=== PATIENT | male | born 1965 | race Caucasian/White ===

== ENCOUNTER 2022-11-13 15:49 | Outpatient (REF) | payer BC, SELFPAY ==
[2022-11-13 16:02] LABS: MANUAL DIFF FLAG NO
[2022-11-13 16:51] LABS: Basophils Absolute Auto 0.1 X10*3/uL (0.0-0.2); Basophils Percent Auto 0.5 % (0-2); Eosinophils Absolute Auto 0.1 X10*3/uL (0.0-0.4); Eosinophils Percent Auto 1.3 % (0-4); Hematocrit 47.7 % (42.0-52.0); Imm Gran Abs Auto 0.02 X10*3/uL (0.00-0.03); Imm Gran Pct Auto 0.2 % (0.0-0.4); Lymphocytes Absolute Auto 2.8 X10*3/uL (1.2-4.9); Lymphocytes Percent Auto 26.7 % (20-40); Mean Corpuscular HGB Conc 33.5 g/dl (31.0-36.0); Mean Corpuscular Hemoglobin 29.1 pg (27.0-33.0); Mean Corpuscular Volume 86.9 fL (80.0-98.0); Mean Platelet Volume 9.8 fL (9.4-12.4); Monocytes Absolute Auto 0.9 X10*3/uL (0.1-1.2); Monocytes Percent Auto 8.9 % (2-11); Neutrophils Absolute Auto 6.6 x10*3/uL (2.0-8.3); Neutrophils Percent Auto 62.4 % (45-73); Platelet Count 274 X10*3/uL (160-400); Red Blood Count 5.49 X10*6/uL (4.60-5.80); Red Cell Distribution Width 12.1 % (11.0-16.0); White Blood Count 10.5 X10*3/uL (4.8-10.8)
[2022-11-13 17:37] LABS: Alanine Aminotransferase 24 U/L (0-40); Albumin Level 4.4 g/dL (3.5-5.0); Alkaline Phosphatase 81 U/L (39-117); Anion Gap 11 (12-20); Aspartate Amino Transferase 23 U/L (5-37); Bilirubin Total 0.4 mg/dL (0.0-1.0); Blood Urea Nitrogen 17 mg/dL (9-16); Calcium 9.7 mg/dL (8.4-10.2); Carbon Dioxide 30 mmol/L (22-29); Chloride 101 mmol/L (96-108); Cholesterol 212 mg/dL; Estimated Glomerular Filt Rate > 60; Glucose Random 75 mg/dL (60-115); HDL Cholesterol 43 mg/dL; LDL Cholesterol Calculated 145 mg/dl; Potassium 4.8 mmol/L (3.3-5.1); Sodium 137 mmol/L (135-145); Total Protein 7.6 g/dL (6.5-8.0); Triglycerides 121 mg/dL
[2022-11-13 17:52] LABS: Free T4 (Free Thyroxine) 0.91 ng/dL (0.71-1.85); Thyroid Stimulating Hormone 3.99 uIU/mL (0.32-4.0)
[2022-11-14 10:53] LABS: Thyroid Peroxidase Antibodies >900 IU/mL (<9)
== END 2022-11-13 15:50 | disposition home or self-care (01) ==
LOC: HO.LAB 15:49
PROVIDERS: PCP Internal Medicine; Visit Provider Internal Medicine
DX: Z00.00 Encounter for general adult medical examination without abnormal findings (principal); E03.9 Hypothyroidism, unspecified
CPT/HCPCS: 36415; 80053; 80061; 84439; 84443; 85025; 86376

== ENCOUNTER 2023-05-14 15:06 | Outpatient (REF) | payer BC, SELFPAY ==
[2023-05-14 15:23] LABS: MANUAL DIFF FLAG NO
[2023-05-14 15:58] LABS: Basophils Absolute Auto 0.1 X10*3/uL (0.0-0.2); Basophils Percent Auto 0.8 % (0-2); Eosinophils Absolute Auto 0.2 X10*3/uL (0.0-0.4); Eosinophils Percent Auto 2.1 % (0-4); Hematocrit 46.2 % (42.0-52.0); Hemoglobin 15.5 g/dl (14.0-18.0); Imm Gran Abs Auto 0.01 X10*3/uL (0.00-0.03); Imm Gran Pct Auto 0.1 % (0.0-0.4); Lymphocytes Absolute Auto 2.5 X10*3/uL (1.2-4.9); Lymphocytes Percent Auto 31.7 % (20-40); Mean Corpuscular HGB Conc 33.5 g/dl (31.0-36.0); Mean Corpuscular Hemoglobin 29.1 pg (27.0-33.0); Mean Corpuscular Volume 86.7 fL (80.0-98.0); Mean Platelet Volume 9.6 fL (9.4-12.4); Monocytes Absolute Auto 0.7 X10*3/uL (0.1-1.2); Monocytes Percent Auto 8.9 % (2-11); Neutrophils Absolute Auto 4.4 x10*3/uL (2.0-8.3); Neutrophils Percent Auto 56.4 % (45-73); Platelet Count 258 X10*3/uL (160-400); Red Blood Count 5.33 X10*6/uL (4.60-5.80); White Blood Count 7.8 X10*3/uL (4.8-10.8)
[2023-05-14 17:00] LABS: Prostate Specific Antigen 1.32 ng/mL (<0.05-4.0)
[2023-05-14 17:01] LABS: Alanine Aminotransferase 25 U/L (0-40); Albumin Level 4.3 g/dL (3.5-5.0); Alkaline Phosphatase 72 U/L (39-117); Anion Gap 11 (12-20); Aspartate Amino Transferase 22 U/L (5-37); Bilirubin Total 0.4 mg/dL (0.0-1.0); Blood Urea Nitrogen 20 mg/dL (9-16); Calcium 9.7 mg/dL (8.4-10.2); Carbon Dioxide 25 mmol/L (22-29); Chloride 103 mmol/L (96-108); Estimated Glomerular Filt Rate > 60; Glucose Random 88 mg/dL (60-115); Potassium 4.2 mmol/L (3.3-5.1); Sodium 135 mmol/L (135-145); Total Protein 7.6 g/dL (6.5-8.0)
[2023-05-14 17:02] LABS: Free T4 (Free Thyroxine) 0.85 ng/dL (0.71-1.85); Thyroid Stimulating Hormone 2.97 uIU/mL (0.32-4.0)
[2023-05-18 18:38] LABS: Thyroid Peroxidase Antibodies >900 IU/mL (<9)
== END 2023-05-14 15:07 | disposition home or self-care (01) ==
LOC: HO.LAB 15:06
PROVIDERS: PCP Internal Medicine; Visit Provider Internal Medicine
DX: Z12.5 Encounter for screening for malignant neoplasm of prostate (principal); E03.9 Hypothyroidism, unspecified; E06.9 Thyroiditis, unspecified; I10 Essential (primary) hypertension
CPT/HCPCS: 36415; 80053; 84153; 84439; 84443; 85025; 86376

== ENCOUNTER 2023-06-17 08:41 | Outpatient (REF) | payer BC, SELFPAY ==
--- NOTE | 2023-06-17 08:47 | EMG_ITS ---
Bilateral median and ulnar motor and sensory studies were performed. Bilateral radial sensory studies were performed and paraspinal muscles were tested with a needle. 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 MD ZELDA Kaur/DAWIT / [id number]
== END 2023-06-17 08:42 | disposition home or self-care (01) ==
LOC: HO.NEURO 08:41
PROVIDERS: PCP Internal Medicine; Visit Provider Internal Medicine
DX: M79.641 Pain in right hand (principal); M79.642 Pain in left hand
CPT/HCPCS: 95886; 95911

== ENCOUNTER 2023-08-24 09:28 | Outpatient (AMB) | payer BC, SELFPAY ==
[2023-08-24 10:30] VITALS: BMI 33.2
--- NOTE | 2023-08-24 10:30 | MHC.OFFVIS ---
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 States CTS started about 3 yrs ago and has worsen at night and in the mornings. States he wakes up with stiff fingers. Also has triggering in his right index finger that started about 2 yrs. Also has little weakness in hands. EMG done. Allergies No Known Allergies Allergy (Verified 08/24/23 10:33) HPI PST SUPERVISOR- B/L Hand pain EMG Done HPI Details Franck is a 58 year old right hand dominant man who presents for a NCS review of his bilateral hand numbness. He complains of numbness in the bilateral median nerve distribution. Symptoms intermittent, but daily, worse at night. He says this has been present for ~3 years now. He also says he has painful locking of the right index finger for ~2 years now. He denies any prior treatment He also says he has stiff fingers in the mornings, which he says improves with use throughout the day. He is retired. [facility] Social History (Updated 08/24/23 @ 10:37 by REG Jarvis) Current occupational status: retired and disabled Current occupation: left hand Review of Systems Const All systems reviewed & are unremarkable except as noted in HPI and below Physical Exam Vital Signs: BMI result Body Mass Index 33.2 Const General: cooperative, healthy appearing and no acute distress Orientation/consciousness: patient oriented x3 HEENT Head: Yes normocephalic and Yes atraumatic Eyes EOM: EOMs intact bilaterally Resp Effort & Inspection: normal respiratory effort and able to speak in complete sentences Cardio Jugular venous distension: no JVD Skin General skin exam: turgor normal Rashes: no rashes Neuro General: patient oriented x3 Extrem Other: Evaluation of Bilateral Upper Extremity: The patient is alert, oriented, and in no acute distress Neuro: Median, Ulnar, Radial nerves motor and sensory intact and sensation is normal to the tips of all digits today in clinic No thenar or intrinsic wasting Good APB muscle belly firing and good finger cross Vascular: Cap refill brisk ROM: He can make a fist and extend all his digits Visible locking and catching of the right index finger Tender over the a1 shira of the right index finger Skin: No lacerations or abrasions. General: No Ecchymosis. No Erythema or evidence of infection. 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 Claritza Salcedo MD Psych Appearance: grossly normal Affect: normal affect Attitude: cooperative Assessment & Plan Assessment & Plan (1) Carpal tunnel syndrome of right wrist: Code(s): G56.01 - Carpal tunnel syndrome, right upper limb (2) Carpal tunnel syndrome of left wrist: Code(s): G56.02 - Carpal tunnel syndrome, left upper limb (3) Trigger finger, right index finger: Code(s): M65.321 - Trigger finger, right index finger Plan Assessment & Plan: 1. Right carpal tunnel syndrome, mild-moderate Symptoms intermittent, but daily, worse at night 2. Right index finger trigger finger 3. Left carpal tunnel syndrome, mild-moderate Symptoms intermittent, but daily, worse at night I educated him about this condition I discussed operative and non-operative treatment options The patient would like to proceed with surgery, beginning with the right side The risks and benefits of operative treatment were discussed with the patient and the patient wishes to proceed with surgery. These risks include, but are not limited to risk of damage to blood vessels, nerves, tendons, infection, recurrence, incomplete relief of preoperative symptoms, persistent pain, possible need for further surgery and the risks associated with regional blocks and anesthesia. The plan is to take the patient to the operating room sometime in the next few weeks for the following procedures: 1. Right Carpal tunnel release, under local 2. Right index trigger finger release, under local All of the preoperative paperwork including the consent was filled out today. All the patient's questions were answered. The patient understands that they will be contacted by our veterinary surgery technologist soon to schedule this procedure He denies Diabetes, blood thinners, asthma, heart, lung, kidney issues We will discuss treatment for his left hand at a later date Scribed for Daylin Jang MD by Loc Bullock, medical apparatus model maker, on 08/24/23 at 10:40 AM, EST. Coding Level of Care Code Est Pt Level 4 (68092) Diagnoses Carpal tunnel syndrome of right wrist G56.01 Carpal tunnel syndrome of left wrist G56.02 Trigger finger, right index finger M65.321
== END 2023-08-24 10:56 | disposition home or self-care (01) ==
PROVIDERS: PCP Internal Medicine; Visit Provider Orthopaedic Surgery
DX: G56.03 Carpal tunnel syndrome, bilateral upper limbs (principal); M65.321 Trigger finger, right index finger
CPT/HCPCS: 99204

== ENCOUNTER → 2023-08-24 09:28 | Outpatient (BNVA) | payer BC, SELFPAY | PROVIDERS: PCP Internal Medicine; Visit Provider Orthopaedic Surgery ==

== ENCOUNTER 2023-10-04 10:45 | Outpatient (REF) | payer BC, SELFPAY ==
[2023-10-04 13:25] LABS: Cholesterol 182 mg/dL (<200); HDL Cholesterol 39 mg/dL (>40); LDL Cholesterol Calculated 126 mg/dL (<100); Triglycerides 89 mg/dL (<150)
[2023-10-04 13:43] LABS: Free T4 (Free Thyroxine) 0.86 ng/dL (0.71-1.85); Thyroid Stimulating Hormone 2.95 uIU/mL (0.32-4.0)
== END 2023-10-04 10:46 | disposition home or self-care (01) ==
LOC: HO.LAB 10:45
PROVIDERS: PCP Internal Medicine; Visit Provider Internal Medicine
DX: E78.00 Pure hypercholesterolemia, unspecified (principal); E03.9 Hypothyroidism, unspecified
CPT/HCPCS: 36415; 80061; 84439; 84443

== ENCOUNTER 2023-11-11 12:08 | Day surgery (SDC) | payer BC, SELFPAY ==
[2023-11-11 12:21] VITALS: BP 140/79; PULSE 73; RESP 20; TEMP 36.1; O2SAT 97; BMI 34.3
--- NOTE | 2023-11-11 14:45 | MHC.SHP ---
Pre-Procedural Eval Section A Date of Service: 11/11/23 The patient is an INPATIENT: No Changes since office visit: No Cold of Flu in the past 2 weeks, No New Medical Problems, No Changes in Medication and No Patient answered all questions The History & Physical has been completed within 30 days and I have reviewed it.: Yes Section B Chief Complaint: carpal tunnel,trigger finger Allergies: Allergies Allergy/AdvReac Type Severity Reaction Status Date / Time No Known Allergies Allergy Verified 08/24/23 10:33 Plan I have reviewed the history and physical and performed a pertinent physical examination on my patient. No changes have occurred unless specified. Time Spent With Patient Time: Total time managing care of this patient today ____ minutes.
--- NOTE | 2023-11-11 14:45 | W.PM.OPN ---
Operative Note Operative Note Date of Service: 11/11/23 Narrative: Preop diagnosis: 1. Right Carpal tunnel syndrome 2. Right index finger trigger finger Postop diagnosis: same Procedure: 1. Right Carpal tunnel release 2. Right index finger trigger release Surgeon: Daylin Jang MD Anesthesia: local block using 1% lidocaine with epinephrine Findings: Thickened transverse carpal ligament. EBL: Less than 5 mL Specimens: None Complications: None Disposition: Brought to recovery room in stable condition Plan: Follow-up for 10-14 days for wound check and suture removal Indications: The patient is 58 years old, with a right index finger trigger finger and carpal tunnel syndrome that has been unresponsive to nonoperative management. The risks and benefits of operative treatment including but not limited to risk of damage to blood vessels, nerves, tendons, infection, persistent pain, persistent symptoms, or possible need for additional surgery were discussed with the patient and the patient wishes to proceed with surgery. Procedure: Once consent was obtained a local block was performed using a combination of 1% lidocaine with epinephrine. The patient was then brought back to the operating suite and placed on the operative table in supine position. The right upper extremity was prepped and draped in a standard surgical fashion. Once assured that we had a good block, a 1.5 cm oblique incision was made centered over the A1 shira of the right index finger . The incision was made through the skin to the subcutaneous tissues using a #15 blade. Careful dissection was made down to the level of the A1 shira using tenotomy scissors, with care being taken to protect the nearby neurovascular structures. A longitudinal incision was made in the A1 shira 1st using a #15 blade, then using tenotomy scissors under direct visualization. The A1 shira was noted to be thickened. Following our A1 shira release, we no longer saw any locking or catching of the digit with flexion and extension. Once assured that we had a good block, a 2.0 cm longitudinal incision was made centered over the right carpal tunnel. The incision was made through the skin to the subcutaneous tissues using a #15 blade. Dissection was made down to the level of the transverse carpal ligament with care being taken to protect the palmar cutaneous nerve. Once the transverse carpal ligament was clearly visualized, a longitudinal incision was made in the transverse carpal ligament 1st using a #15 blade, then using tenotomy scissors under direct visualization. Care was taken to look for and protect the motor branch of the median nerve when seen in this area. Once satisfied with our carpal tunnel release the wound was copiously irrigated with normal saline and hemostasis was obtained with a brief period of local pressure. The skin edges were reapproximated with some 5.0 nylon suture material and a sterile dressing was applied. The patient appears to have tolerated the procedure well and with no complications. All digits were well vascularized at the conclusion of the case.
[2023-11-11 15:35] VITALS: BP 161/83; PULSE 69; RESP 20; TEMP 36.1; O2SAT 95
== END 2023-11-11 15:55 | disposition home or self-care (01) ==
PROVIDERS: PCP Internal Medicine; Visit Provider Orthopaedic Surgery
PROC: (CPT 64721; principal; 2023-11-11 13:20)
PROC: (CPT 26055; 2023-11-11 13:20)
DX: G56.01 Carpal tunnel syndrome, right upper limb (principal); M65.321 Trigger finger, right index finger; R20.0 Anesthesia of skin; R20.2 Paresthesia of skin
CPT/HCPCS: 64721; 26055; J0171

== ENCOUNTER → 2023-11-11 12:08 | Outpatient (BNV) | payer BC, SELFPAY | PROVIDERS: PCP Internal Medicine; Visit Provider Orthopaedic Surgery | DX: M65.321 Trigger finger, right index finger (principal); G56.01 Carpal tunnel syndrome, right upper limb | CPT/HCPCS: 26055; 64721 ==

== ENCOUNTER 2023-11-24 09:41 | Outpatient (AMB) | payer BC, SELFPAY ==
--- NOTE | 2023-11-24 09:43 | A.OFFVIS_ITS ---
Intake Intake Visit Reasons: PO-Rt CTR, Rt IF Trigger 11/11/23 Intake Note: Pt presents to the office today for a PO- rt ctr, rt IF 11/11/23. Pt states he is feeling well after the procedure. Pt states he does have pain sometimes where his incisions are. Pt denies any swelling. Allergies No Known Allergies Allergy (Verified 11/24/23 09:44) HPI PO-Rt CTR, Rt IF Trigger 11/11/23 HPI Details 58-year-old male who returns to the [facility] today for post-op right CTR and right index finger trigger release, 11/11/23. He states he has improvement in his hand however he does experiences mild pain at the incision site. He denies any swelling in his hand. He is doing well overall and has no other concerns today. [facility] Medical History Broken leg History of hypothyroidism History of anxiety History of depression Surgical History Hx of colonoscopy Hx of surgical biopsy Social History (Updated 11/24/23 @ 09:45 by Karen Mo MA) Alcohol intake: never Patient Tobacco Use Status: Never used Tobacco Use of substances other than those prescribed or required for medical reasons: Yes Substance Use Type: Marijuana Current occupational status: retired and disabled Current occupation: left hand Review of Systems Const All systems reviewed & are unremarkable except as noted in HPI and below Physical Exam Extrem Other: Right wrist: Incision clean, dry and intact. No erythema or drainage. He has full sensation throughout. Right index finger: No catching or locking. He has diffused swelling throughout the finger. He is limited with his ROM. Results Reviewed Results Reviewed: Operative Note Date of Service: 11/11/23 Narrative: Preop diagnosis: 1. Right Carpal tunnel syndrome 2. Right index finger trigger finger Postop diagnosis: same Procedure: 1. Right Carpal tunnel release 2. Right index finger trigger release Surgeon: Daylin Jang MD Anesthesia: local block using 1% lidocaine with epinephrine Findings: Thickened transverse carpal ligament. EBL: Less than 5 mL Specimens: None Assessment & Plan Assessment & Plan (1) Carpal tunnel syndrome of right wrist: Code(s): G56.01 - Carpal tunnel syndrome, right upper limb (2) Carpal tunnel syndrome of left wrist: Code(s): G56.02 - Carpal tunnel syndrome, left upper limb (3) Trigger finger, right index finger: Code(s): M65.321 - Trigger finger, right index finger Plan Sutures removed today, steri strips applied. I advised him to keep the area clean, dry for the next several days. I did recommend to avoid submerging his hand underwater and pat it dry after getting it wet. He will avoid any type of lifting, pushing, pulling or carrying greater than a 5-10 pounds for the next 2- 3 weeks which he is content with. He is interested in left wrist CTR surgery which he will schedule for a later date and he will follow-up as needed for the right wrist. Patient Instructions: Scribed for Phill Cardoso PA-C, by Neal Dior medical technologist hematology, on 11/24/2023 at 9:45 AM EST. I, Phill Cardoso PA-C, have personally reviewed and agree with the information entered by the scribe. Coding Level of Care Code Global (34733) Diagnoses Carpal tunnel syndrome of right wrist G56.01 Carpal tunnel syndrome of left wrist G56.02 Trigger finger, right index finger M65.321
== END 2023-11-24 10:05 | disposition home or self-care (01) ==
PROVIDERS: PCP Internal Medicine; Visit Provider Physician Assistant
DX: G56.03 Carpal tunnel syndrome, bilateral upper limbs (principal); M65.321 Trigger finger, right index finger
CPT/HCPCS: 99024

== ENCOUNTER → 2023-11-24 09:41 | Outpatient (BNVA) | payer BC, SELFPAY | PROVIDERS: PCP Internal Medicine; Visit Provider Physician Assistant ==

== ENCOUNTER 2023-12-28 09:55 | Outpatient (AMB) | payer BC, SELFPAY ==
[2023-12-28 09:56] VITALS: BMI 34.3
--- NOTE | 2023-12-28 09:56 | MHC.OFFVIS ---
Intake Vital Signs 12/28/23 09:56 Height 5 ft 9 in Weight 232 lb BMI 34.3 Intake Visit Reasons: PO-Rt CTR, Rt IF Trigger 11/11/23 Intake Note: Franck 58 yr old male presents today for his P/O Rt CTR, Rt IF Trigger 11/11/[address] Jang. States he still has swelling and a stabbing pain by his CTR incision. States his index finger has not locked however its painful to make a fist, mostly over the dorsal aspect of the MCP and PIP joints. It should be noted in talking with patient that he has been doing rather heavy work including loading large logs into his wood splitter and is now about 6 weeks postop.. Allergies No Known Allergies Allergy (Verified 12/28/23 09:59) HPI PO-Rt CTR, Rt IF Trigger 11/11/23 HPI Details Franck is a 58 year old left hand dominant man who returns with complaints of pain, S/P right carpal tunnel release & index finger trigger release, DOS: 11/11/23. He says he feels some swelling & a stabbing pain near his carpal tunnel incision. He also complains of pain in his index finger when trying to make a fist. He says he has been working on ROM exercises and massaging his hand & wrist at home, but says this has only helped him somewhat. He says he has been using his hand for activities around the house, including splitting logs. He complains of worsening pain at night following these heavy activities. He says he no longer has any locking or catching & his sensation in his right hand is improved and mostly normal now. He has left carpal tunnel syndrome and complains of numbness nightly, which affects his sleep. He says this is tolerable for now and is still intermittent. He is retired but tries to stay active. [facility] Medical History Broken leg History of hypothyroidism History of anxiety History of depression Surgical History Hx of colonoscopy Hx of surgical biopsy Social History Alcohol intake: never Patient Tobacco Use Status: Never used Tobacco Substance Use Type: Marijuana Current occupational status: retired and disabled Current occupation: left hand Physical Exam Vital Signs: BMI result Body Mass Index 34.3 Extrem Other: Evaluation of Right Upper Extremity: The patient is alert, oriented, and in no acute distress All incisions are well healed with no erythema drainage or evidence of infection. Mild tenderness over the carpal tunnel incision, but no hypersensitivity. Neuro: Median, Ulnar, Radial nerves motor and sensory intact and sensation is normal to the tips of all digits today in clinic No thenar or intrinsic wasting Good APB muscle belly firing and good finger cross He can make a fist and extend all of his digits with no locking or catching. He does complain of some tightness over the dorsal aspect of the index finger MCP and PIP joints when he makes a fist, likely secondary to some mild stiffness. 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 Claritza Salcedo MD Assessment & Plan Assessment & Plan (1) Carpal tunnel syndrome of right wrist: Code(s): G56.01 - Carpal tunnel syndrome, right upper limb (2) Carpal tunnel syndrome of left wrist: Code(s): G56.02 - Carpal tunnel syndrome, left upper limb (3) Trigger finger, right index finger: Code(s): M65.321 - Trigger finger, right index finger Plan Assessment & Plan: 1. Right carpal tunnel syndrome, S/P release DOS: 11/11/23 Pre-operative symptoms intermittent, but daily, worse at night Now with normal sensation 2. Right index finger trigger finger, S/P release DOS: 11/11/23 The patient appears to be doing well post-operatively I educated him about the post-operative course I discussed activity modifications, he is to work on ROM exercises at home and massage about the incision. I explained to him that I think his current exam is normal for only 6 weeks postop. I also explained that I think truly heavy work like lifting large logs putting them on the wood splitter might be a little much at only 6 weeks postop. We talked about a possible referral to OT hand therapy, but now that he understands that what he is feeling is normal for 6 weeks postop, he just wants to give it a little bit more time. Follow up prn 3. Left carpal tunnel syndrome, mild-moderate Symptoms intermittent, but daily, worse at night We will discuss treatment for his left hand at a later date Scribed for Daylin Jang MD by Loc Bullock, medical staff director, on 12/28/23 at 10:10 AM, EST. Coding Level of Care Code Global (56197) Diagnoses Carpal tunnel syndrome of right wrist G56.01 Carpal tunnel syndrome of left wrist G56.02 Trigger finger, right index finger M65.321
== END 2023-12-28 10:19 | disposition home or self-care (01) ==
PROVIDERS: PCP Internal Medicine; Visit Provider Orthopaedic Surgery
DX: G56.03 Carpal tunnel syndrome, bilateral upper limbs (principal); M65.321 Trigger finger, right index finger
CPT/HCPCS: 99024

== ENCOUNTER → 2023-12-28 09:55 | Outpatient (BNVA) | payer BC, SELFPAY | PROVIDERS: PCP Internal Medicine; Visit Provider Orthopaedic Surgery ==

== ENCOUNTER 2024-09-01 14:15 | Outpatient (REF) | payer BC, SELFPAY ==
--- NOTE | ~2024-09-01 | XR_ITS ---
EXAMINATION: XR CHEST CLINICAL INFORMATION: Right upper back chest pain COMPARISON: None available. TECHNIQUE: 2 views of the chest were obtained. FINDINGS: No significant abnormality is noted involving the heart, lungs, mediastinum, bony thorax or soft tissues. XR/XR chest 2V IMPRESSION: Unremarkable examination. Electronically signed by: Eduardo Pizarro DO 09/01/2024 03:38 PM [facility]
[2024-09-01 14:43] LABS: MANUAL DIFF FLAG NO
[2024-09-01 15:03] LABS: Basophils Percent Auto 0.4 % (0-2); Eosinophils Absolute Auto 0.1 X10*3/uL (0.0-0.4); Eosinophils Percent Auto 1.7 % (0-4); Hematocrit 46.1 % (42.0-52.0); Hemoglobin 15.6 g/dl (14.0-18.0); Imm Gran Abs Auto 0.02 X10*3/uL (0.00-0.03); Imm Gran Pct Auto 0.3 % (0.0-0.4); Lymphocytes Absolute Auto 2.1 X10*3/uL (1.2-4.9); Lymphocytes Percent Auto 26.7 % (20-40); Mean Corpuscular HGB Conc 33.8 g/dl (31.0-36.0); Mean Corpuscular Volume 82.6 fL (80.0-98.0); Mean Platelet Volume 9.5 fL (9.4-12.4); Monocytes Absolute Auto 0.7 X10*3/uL (0.1-1.2); Monocytes Percent Auto 9.6 % (2-11); Neutrophils Absolute Auto 4.7 x10*3/uL (2.0-8.3); Neutrophils Percent Auto 61.3 % (45-73); Platelet Count 293 X10*3/uL (160-400); Red Blood Count 5.58 X10*6/uL (4.60-5.80); Red Cell Distribution Width 11.9 % (11.0-16.0); White Blood Count 7.7 X10*3/uL (4.8-10.8)
[2024-09-01 15:11] LABS: D Dimer High Sensitivity < 150 NG/ML
[2024-09-01 15:29] LABS: Albumin Level 4.3 g/dL (3.5-5.0); Alkaline Phosphatase 97 U/L (39-117); Anion Gap 12 (12-20); Aspartate Amino Transferase 53 U/L (5-37); Bilirubin Total 0.3 mg/dL (0.0-1.0); Blood Urea Nitrogen 23 mg/dL (9-16); C Reactive Protein 1.89 mg/dL (< or = 0.50); Carbon Dioxide 25 mmol/L (22-29); Chloride 105 mmol/L (96-108); Estimated Glomerular Filt Rate > 60; Glucose Random 94 mg/dL (60-115); Potassium 4.4 mmol/L (3.3-5.1); Sodium 138 mmol/L (135-145); Total Protein 8.1 g/dL (6.5-8.0)
[2024-09-01 15:58] LABS: Alanine Aminotransferase 56 U/L (0-40)
== END 2024-09-01 14:16 | disposition home or self-care (01) ==
LOC: HO.XRAY 14:15
PROVIDERS: PCP Internal Medicine; Visit Provider Internal Medicine
DX: M54.6 Pain in thoracic spine (principal)
CPT/HCPCS: 36415; 71046; 80053; 82550; 85025; 85379; 86140

== ENCOUNTER 2024-10-09 08:10 | Outpatient (REF) | payer BC, SELFPAY ==
--- OUTSIDE RECORDS SUMMARY | 2024-10-09 08:13 | XMS_ITS | Continuity of Care Document ---
Author Organization [facility] [address] [place] [address] Phone [phone] Care Team Providers Care Hydro Mechanic Name Role Phone Ruslan Clayton M.D. Care Team Information Receiv er [phone] Problems Active Problems Provider Date Osteoarthritis Neymar Austin M.D. Onset: Hypothyroidism Neymar Austin M.D. Onset: Social History Type Date Description Comments Sex Unknown Lives With Roommate ETOH Use Rarely consumes alcohol Tobacco Use Start: Unknown End: Unknown Patient is a former smoker Recreational Drug Use Smokes mar ijuana 1-2 times per day Medications Active Medications SIG Qnty Indications Ordering Provider Date Levothyroxine [id number] Tablets Take 1 Tablet By Mouth Every Day 90taseth Austin M.D. 06/17/2022 Sertraline XUB03hi Tablets Take 1 Tablet By Mouth Every Day 90taseth Austin M.D. 06/10/2022 Vital Signs Date Vital Result Comment 06/17/2022 8:59am BP Systolic 142 mmHg BP Diastolic 80 mmHg Heart Rate 63 /min Height 69 inches 5'9 Weight 226.50 lb BMI (Body Mass Index) 33.4 kg/m2 Results Test Acquired Date Facility Test Result H/L [facility] Laboratory test finding 06/17/2022 [facility] TSH With Reflex To FT4 3.30 uIU/mL (0.4-4.2) Medical Devices Description No Information Available Encounters Type Date Location Provider Dx Diagnosis Office Visit 06/17/2022 9:00a Main Office Neymar Austin M.D. E03.9 Hypothyroidism, unspecified M19.90 Unspecified osteoart hritis, unspecified site Assessments Date Code Description Provider 06/17/2022 E03.9 Hypothyroidism, unspecified Neymar Austin M.D. 06/17/2022 M19.90 Osteoarthritis Neymar costello M.D. Plan of Treatment 06/17/2022 - Neymar Austin M.D.* E03.9 Hypothyroidism, unspecified * M19.90 Osteoarthritis * Functional Status Description No Information Available Mental Status Description No Information Available Referrals Description No Information Available
[2024-10-09 09:08] LABS: Free T4 (Free Thyroxine) 1.07 ng/dL (0.71-1.85); Thyroid Stimulating Hormone < 0.01 uIU/mL (0.32-4.0)
== END 2024-10-09 08:11 | disposition home or self-care (01) ==
LOC: HO.LAB 08:10
PROVIDERS: PCP Internal Medicine; Visit Provider Internal Medicine
DX: E03.9 Hypothyroidism, unspecified (principal)
CPT/HCPCS: 36415; 84439; 84443

== ENCOUNTER 2024-10-16 09:33 | Outpatient (REF) | payer BC, SELFPAY ==
--- OUTSIDE RECORDS SUMMARY | 2024-10-16 09:34 | XMS_ITS ---
Continuity of Care Document (CCD) Created on: October 16, 2024 Franck Rosa External Reference #: [id number] : [id number] Sex: Male Author Organization [facility] [address] [place] [address] Phone [phone] Care Team Providers Care Nephrology Social Worker Name Role Phone Ruslan Clayton M.D. Care Team Information Receiv er [phone] Problems Active Problems Provider Date Osteoarthritis Neymar Austin M.D. Onset: Hypothyroidism Neymar Austin M.D. Onset: Social History Type Date Description Comments Sex Unknown Lives With Roommate ETOH Use Rarely consumes alcohol Tobacco Use Start: Unknown End: Unknown Patient is a former smoker Recreational Drug Use Smokes mar ijuana 1-2 times per day Medications Active Medications SIG Qnty Indications Ordering Provider Date Levothyroxine [id number] Tablets Take 1 Tablet By Mouth Every Day 90taseth Austin M.D. 06/17/2022 Sertraline OAE87on Tablets Take 1 Tablet By Mouth Every Day 90taseth Austin M.D. 06/10/2022 Vital Signs Date Vital Result Comment 06/17/2022 8:59am BP Systolic 142 mmHg BP Diastolic 80 mmHg Heart Rate 63 /min Height 69 inches 5'9 Weight 226.50 lb BMI (Body Mass Index) 33.4 kg/m2 Results Test Acquired Date Facility Test Result H/L [place] [facility] [place] Laboratory test finding 06/17/2022 [facility] TSH With Reflex To FT4 [...]
[2024-10-16 11:13] LABS: Free T4 (Free Thyroxine) 1.05 ng/dL (0.71-1.85); Thyroid Stimulating Hormone < 0.01 uIU/mL (0.32-4.0)
== END 2024-10-16 09:34 | disposition home or self-care (01) ==
LOC: HO.LAB 09:33
PROVIDERS: PCP Internal Medicine; Visit Provider Internal Medicine
DX: E03.9 Hypothyroidism, unspecified (principal)
CPT/HCPCS: 36415; 84439; 84443

== ENCOUNTER 2025-01-10 14:48 | Outpatient (AMB) | payer BC, SELFPAY ==
--- NOTE | 2025-01-10 14:49 | MHC.PC.OV ---
Vital Signs 01/10/25 14:50 Height 5 ft 9 in Weight 207 lb BMI 30.6 BP 148/86 H Respiration 14 Pulse 82 Pulse Source Pulse Oximeter Temp 97.7 F Temp Source Temporal Artery Scan Pulse Oximetry (%) 98 Oxygen Delivery Method Room Air Intake Visit Reasons: Routine - see comments Cyber Security Consultant Required: No Accompanied by: Self / Same As Patient Allergies No Known Allergies Allergy (Verified 01/10/25 14:49) Tobacco use date assessed: 01/10/25 Dental Screening Dental Screen Date: 01/10/25 Did you have a dental visit in the last 12 months?: Yes Did you have a dental problem in the last 6 months where you did not have access to dental care?: No PFSH Medical History Broken leg History of hypothyroidism History of anxiety History of depression Surgical History Hx of colonoscopy Hx of surgical biopsy Family History (Updated 01/10/25 @ 14:55 by ISA Padilla) Father No problems noted. Mother No problems noted. Social History Housing: House Alcohol intake: never Patient Tobacco Use Status: Never used Tobacco Substance Use Type: Marijuana service: No Current occupational status: retired and disabled Current occupation: left hand Cognitive needs: No Hearing needs: No Vision needs: Yes (rx glasses) Questionnaire PHQ-9 Over the last 2 weeks, how often have you been bothered by any of the following problems? 1. Little interest or pleasure in doing things: not at all 2. Feeling down, depressed, or hopeless: not at all 3. Trouble falling or staying asleep, or sleeping too much: not at all 4. Feeling tired or having little energy: not at all 5. Poor appetite or overeating: not at all 6. Feeling bad about yourself - or that you are a failure or have let yourself or your family down: not at all 7. Trouble concentrating on things, such as reading the newspaper or watching television: not at all 8. Moving or speaking so slowly that other people could have noticed. Or the opposite - being so fidgety or restless that you have been moving around a lot more than usual: not at all 9. Thoughts that you would be better off or of hurting yourself in some way: not at all Total score: 0 Source: Developed by Drs. Bret Alvarenga, Mabel Marte, Jake Flores and colleagues, with an educational marco from [employer]. Thrive Questionnaire Date Thrive assessed: 01/10/25 I am a: Patient What is your living situation today?: I have a steady place to live Within the past 12 months, did the food you bought not last and you didn't have the money to get more?: Never true Within the past 12 months, did you worry whether your food would run out before you got money to buy more?: Never true Do you have trouble paying for medicines?: No Do you have trouble getting transportation to medical appointments?: No Do you have trouble paying your heating and electricity bill?: No Do you have trouble taking care of your child, family member or friend?: No Do you have trouble with day-to-day activities such as bathing, preparing meals, shopping, managing finances, etc.?: No Are you currently unemployed and looking for a job?: No Are you interested in more education?: No Please select the resources that you would like help with: None THRIVE Score: 0 AUDIT C Alcohol Use Questionnaire (AUDIT-C) 1. How often do you have a drink containing alcohol?: Never 3. How often do you have six or more drinks on one occasion?: Never Total Score: 0 MARNIE-7 AMB Questionnaire MARNIE-7 Date MARNIE - 7 assessed: 01/10/25 Feeling nervous, anxious, or on edge: 0 = Not at all Not being able to stop or control worryin = Not at all Worrying too much about different things: 0 = Not at all Trouble relaxin = Not at all Being so restless that it is hard to sit still: 0 = Not at all Becoming easily annoyed or irritable: 0 = Not at all Feeling afraid as if something awful might happen: 0 = Not at all Total MARNIE-7 score (0-4 normal; 5-9 mild; 10-14 moderate; 15-21 severe): 0 Source: Developed by Mabel Navarro Kurt Kroenke and colleagues, with an educational marco from [employer]. Physical exam (Primary Care) Vital Signs: Last Vital Signs Temp 97.7 F 01/10/25 14:50 Pulse 82 01/10/25 14:50 Resp 14 01/10/25 14:50 BP 148/86 H 01/10/25 14:50 Pulse Ox 98 01/10/25 14:50 Oxygen Delivery Method Room Air 01/10/25 14:50 BMI result Body Mass Index 30.6 Tobacco/Smoking Status: Tobacco use Status Tobacco use date assessed 01/10/25 01/10/25 14:56 Patient Tobacco Use Status Never used Tobacco 01/10/25 14:56 PHQ-9: PHQ-9 Score PHQ-9: Total score 0 01/10/25 14:56 Thrive Assessment: Date of Thrive Assessment Date Thrive assessed 01/10/25 01/10/25 14:56 Coding Level of Care Code New Pt Level 4 (83971) Complex EM visit Add On G2211 Diagnoses Aortitis I77.6 Trigger finger, right index finger M65.321 Assessment & Plan Assessment & Plan (1) Aortitis: Code(s): I77.6 - Arteritis, unspecified Plan: On a CTA of the abdomen, abnormality of the aorta was commented on by the radiologist. A referral to the vascular surgeon was made. Patient preferred seeing a provider at [facility]. Currently asymptomatic. (2) Trigger finger, right index finger: Code(s): M65.321 - Trigger finger, right index finger Category: Medical Plan: Patient gives generalized history of OA. Did see the sheetmetal trades worker for the elevated sed rate and CRP. Plan History of Present Illness The patient is a 59-year-old male presenting with follow-up concerns regarding an enlarged aortic artery discovered during a recent hospitalization for shoulder pain at [facility]. During this time, imaging identified an aortic aneurysm requiring further evaluation by a vascular specialist, which has not yet occurred. In addition, the patient discusses chronic issues with swollen fingers and a history of carpal tunnel syndrome. He underwent carpal tunnel release surgery on one hand but the other continues to present symptoms. Consultation with a sheetmetal trades worker excluded arthritis as the cause, and despite current stabilization, the patient reports persistent nocturnal finger swelling requiring positional changes for comfort. Social History - Employment: History of working in construction. - Family Status: Not explicitly stated. - Exercise: Not explicitly stated. - Substance Use: Not explicitly stated. Review of Systems - Musculoskeletal: Reports ongoing issues with finger swelling and pain, history of carpal tunnel syndrome, and previous shoulder pain. Physical Exam General: Cooperative and healthy appearing Nutritional Appearance: Well nourished Orientation/consciousness: Patient oriented x3 Limitations: No limitations Head: Normal to inspection General: Appearance normal, both eyes and all related structures Neck: Normal visual inspection Chest: Normal palpation of entire chest wall Respiratory: Normal respiratory effort Neurology: Patient oriented x3 Results - Tests and Diagnostics: CT scan conducted in August revealed an enlarged aortic artery. Plan The patient requires vascular referral to address the aortic aneurysm identified on CT imaging. In parallel, continued evaluation and possible conservative management of finger symptoms are warranted. A reassessment for completing carpal tunnel surgery on the left hand may be necessary, depending on the persistence of symptoms and any additional findings. Patient was informed and verbally consented to the use of an ambient scribe for clinic note documentation during this visit. Discussion Notes I reviewed the patient's history of an aortic aneurysm discovered during recent imaging and emphasized the need for vascular specialist follow-up. We discussed the benign nature of the shoulder pain resolved post-hospitalization, the carpal tunnel surgical history, and options for addressing ongoing finger swelling. A plan was outlined to ensure timely evaluation by a vascular specialist and appropriate follow-up for musculoskeletal issues. Patient Instructions - Follow up with a vascular specialist regarding the aortic findings. - Continue elevating hands at night to manage swelling. - Monitor for any worsening symptoms, particularly in hands or vascular health. - Consultation for further intervention on the opposite hand for carpal tunnel if symptoms persist. Orders: Referrals Vascular Surgery Referral I77.6 - Arteritis, unspecified
[2025-01-10 14:50] VITALS: BP 148/86; PULSE 82; RESP 14; TEMP 36.5; O2SAT 98; BMI 30.6
--- OUTSIDE RECORDS SUMMARY | 2025-01-10 16:59 | XMS_ITS | Continuity of Care Document ---
Author Organization [facility] [address] [place] [address] Phone [phone] Care Team Providers Care Professional Fee Coder Name Role Phone Ruslan Clayton M.D. Care Team Information Receiv er [phone] Problems Active Problems Provider Date Osteoarthritis Neymar Austin M.D. Onset: Hypothyroidism Neymar Austin M.D. Onset: Social History Type Date Description Comments Sex Unknown Lives With Roommate ETOH Use Rarely consumes alcohol Tobacco Use Start: Unknown End: Unknown Patient is a former smoker Recreational Drug Use Smokes mar ijuana 1-2 times per day Medications Active Medications SIG Qnty Indications Ordering Provider Date Levothyroxine [id number] Tablets Take 1 Tablet By Mouth Every Day 90taseth Austin M.D. 06/17/2022 Sertraline [id number] Tablets Take 1 Tablet By Mouth Every Day 90tabs Neymar Austin M.D. 06/10/2022 Vital Signs Date Vital Result Comment 06/17/2022 8:59am BP Systolic 142 mmHg BP Diastolic 80 mmHg Heart Rate 63 /min Height 69 inches 5'9 Weight 226.50 lb BMI (Body Mass Index) 33.4 kg/m2 Results Test Acquired Date Facility Test Result H/L Range N ote TSH With Reflex To FT4 06/17/2022 [facility] Reference Lab TSH With Reflex To FT4 [...]
== END 2025-01-10 15:39 | disposition home or self-care (01) ==
LOC: HO.HMCHD 14:48
PROVIDERS: PCP Internal Medicine; Visit Provider Internal Medicine
DX: I77.6 Arteritis, unspecified (principal); M65.321 Trigger finger, right index finger

== ENCOUNTER 2025-02-17 09:25 | Outpatient (REF) | payer BC, SELFPAY ==
[2025-02-17 10:19] LABS: Hematocrit 41.9 % (42.0-52.0); Hemoglobin 14.3 g/dl (14.0-18.0); Mean Corpuscular HGB Conc 34.1 g/dl (31.0-36.0); Mean Corpuscular Hemoglobin 28.1 pg (27.0-33.0); Mean Corpuscular Volume 82.3 fL (80.0-98.0); Mean Platelet Volume 8.7 fL (9.4-12.4); Platelet Count 291 X10*3/uL (160-400); Red Blood Count 5.09 X10*6/uL (4.60-5.80); Red Cell Distribution Width 13.2 % (11.0-16.0); White Blood Count 8.8 X10*3/uL (4.8-10.8)
[2025-02-17 10:40] LABS: Appearance Urine Clear; Color Urine Yellow; Glucose Urine UA Negative (Negative); Leukocyte Esterase Urine Negative (Negative); Nitrite Urine Negative (Negative); Specific Gravity - Urine 1.025 (1.005-1.025); UMIC TRIGGER UA YES; Urine Blood Negative (Negative); Urine Ketones Negative (Negative); Urine Protein 100 (2+) mg/dL (Neg-Trace)
[2025-02-17 10:45] LABS: Bacteria Urine None Seen (None Seen); Hyaline Casts Urine 0-2 /LPF (0-2); RBC Urine 0-2 /HPF (0-2); Squamous Epithelial Cell Urine 0-2 /HPF (0-2); WBC Urine 0-5 /HPF (0-5)
[2025-02-17 11:00] LABS: Erythrocyte Sedimentation Rate 62 MM/HR (0-15)
[2025-02-17 11:25] LABS: Alanine Aminotransferase 18 U/L (0-40); Albumin Level 3.8 g/dL (3.5-5.0); Alkaline Phosphatase 94 U/L (39-117); Anion Gap 11 (12-20); Aspartate Amino Transferase 21 U/L (5-37); Bilirubin Direct 0.1 mg/dL (0.0-0.5); Bilirubin Total 0.3 mg/dL (0.0-1.0); Blood Urea Nitrogen 23 mg/dL (9-16); Calcium 9.3 mg/dL (8.4-10.2); Carbon Dioxide 25 mmol/L (22-29); Chloride 106 mmol/L (96-108); Cholesterol 155 mg/dL (<200); Estimated Glomerular Filt Rate > 60; Glucose Random 100 mg/dL (60-115); HDL Cholesterol 42 mg/dL (>40); LDL Cholesterol Calculated 103 mg/dL (<100); Potassium 4.3 mmol/L (3.3-5.1); Sodium 138 mmol/L (135-145); Total Protein 7.7 g/dL (6.5-8.0); Triglycerides 51 mg/dL (<150)
[2025-02-17 11:35] LABS: Thyroid Stimulating Hormone 0.47 uIU/mL (0.32-4.0)
[2025-02-17 12:16] LABS: T4 Thyroxine 6.2 ug/dL (4.5-12.0)
[2025-02-22 16:52] LABS: FT4 by Equilib. Dialysis 0.8 ng/dL (0.9-2.2)
== END 2025-02-17 09:26 | disposition home or self-care (01) ==
LOC: HO.LAB 09:25
PROVIDERS: PCP Internal Medicine; Visit Provider Internal Medicine
DX: E05.90 Thyrotoxicosis, unspecified without thyrotoxic crisis or storm (principal)
CPT/HCPCS: 36415; 80048; 80061; 80076; 81001; 84436; 84439; 84443; 85027; 85652

== ENCOUNTER 2025-02-22 13:47 | Outpatient (REF) | payer BC, SELFPAY ==
--- NOTE | ~2025-02-22 | XR_ITS ---
EXAMINATION: XR HAND/WRIST, RIGHT XR HAND/WRIST, LEFT CLINICAL INFORMATION: M79.641 - Pain in right hand COMPARISON: None TECHNIQUE: PA, lateral, and oblique views of the each hand and wrist. FINDINGS: LEFT HAND/WRIST: There is normal bone mineralization. No periarticular osteopenia identified. No fracture, dislocation, or suspicious bone lesion. There are or arthritic changes of the DIP joints of the digits, most notable in the second and third digits. There are mild findings in the interphalangeal joint of the thumb. There is a suggestion of lateral periarticular erosions in the DIP joints. Mild arthritis in the first through third MCP joints, with mild osteophytic spurs of the second and third metatarsal heads. The bony carpus is normally aligned without definite erosions or arthritic findings. There is negative ulnar variance. No erosion of the ulnar styloid. Soft tissues demonstrate vascular calcifications but are otherwise normal. RIGHT HAND/WRIST: There is normal bone mineralization. No periarticular osteopenia identified. No fracture, dislocation, or suspicious bone lesion. There are or arthritic changes of the DIP joints of the digits, most notable in the second and third digits. There are mild findings in the interphalangeal joint of the thumb. There is a suggestion of lateral periarticular erosions in the DIP joints. Mild arthritis in the first through third MCP joints, with mild osteophytic spurs of the second and third metatarsal heads. There is an erosion laterally in the third metatarsal head. The bony carpus is normally aligned without definite erosions or arthritic findings. There is negative ulnar variance. No erosion of the ulnar styloid. Soft tissues demonstrate vascular calcifications but are otherwise normal. 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 These arthritic changes consistent with predominantly productive bony changes with marginal erosions highly suggestive of psoriatic arthropathy. Differential would include early primary erosive osteoarthritis. Electronically signed by: Campbell Santos MD 02/23/2025 12:43 PM EDT
[2025-02-22 14:52] LABS: Appearance Urine Clear; Color Urine Yellow; Glucose Urine UA Negative (Negative); Leukocyte Esterase Urine Negative (Negative); Nitrite Urine Negative (Negative); PH 5.5 (5.0-9.0); Specific Gravity - Urine 1.015 (1.005-1.025); UMIC TRIGGER UA YES; Urine Blood Negative (Negative); Urine Ketones Negative (Negative); Urine Protein 100 (2+) mg/dL (Neg-Trace)
[2025-02-22 14:54] LABS: Bacteria Urine None Seen (None Seen); Hyaline Casts Urine 0-2 /LPF (0-2); RBC Urine 0-2 /HPF (0-2); Squamous Epithelial Cell Urine 0-2 /HPF (0-2); WBC Urine 0-5 /HPF (0-5)
[2025-02-22 15:07] LABS: Rheumatoid Factor < 13.0 IU/mL (<15.0)
--- OUTSIDE RECORDS SUMMARY | 2025-02-22 16:35 | XMS_ITS | Clinical Summary ---
Author Organization [address] [place] [address] [place] [phone] Phone Care Team Providers Care Quality Process Auditor Name Role Phone Ruslan Clayton MD Primary Care Provider [phone] Allergies No known active allergies Medications sertraline (ZOLOFT) 50 mg tablet Take 1 tablet (50 mg total) by mouth 1 (one) time each day. Active Encounters Date Type Department Care Team Description 01/25/2025 11:00 AM EDT Office Visit Vascular Surgery - [place] [address] [facility] [facility] [address] [place] [address] Braxton Broderick MD Aorto-iliac atherosclerosis ([facility] V24) (Primary Dx) from Last 3 Months [...] patient's age to complete this topic Insurance [facility] Care Teams Quality Process Auditor Relationship Specialty Start Date End Date Ruslan Clayton MD [address] [place] [address] [place] PCP - General Manager Fraud 11/22/18
[2025-02-23 07:08] LABS: Lyme Abs Screen <0.90 index
[2025-02-27 06:43] LABS: Cyclic Citrullinated Peptide <16 UNITS
== END 2025-02-22 13:48 | disposition home or self-care (01) ==
LOC: HO.XRAY 13:47
PROVIDERS: PCP Internal Medicine; Visit Provider Internal Medicine
DX: M25.50 Pain in unspecified joint (principal); M79.641 Pain in right hand; M79.642 Pain in left hand
CPT/HCPCS: 36415; 73120; 81001; 86200; 86431; 86617; 86618

== ENCOUNTER 2025-02-22 13:47 | Outpatient (AMB) | payer BC, SELFPAY ==
[2025-02-22 13:44] VITALS: BP 140/80; PULSE 86; RESP 16; TEMP 36.4; O2SAT 96; BMI 31.9
--- NOTE | 2025-02-22 13:44 | MHC.PC.OV ---
Vital Signs 02/22/25 13:44 Height 5 ft 9 in Weight 216 lb BMI 31.9 BP 140/80 H Respiration 16 Pulse 86 Pulse Source Pulse Oximeter Temp 97.6 F Temp Source Temporal Artery Scan Pulse Oximetry (%) 96 Oxygen Delivery Method Room Air Intake Visit Reasons: Abnml Labs Obstetric Anaesthetist Required: No Accompanied by: Self / Same As Patient Allergies No Known Allergies Allergy (Verified 01/10/25 14:49) Tobacco use date assessed: 02/22/25 Dental Screening Dental Screen Date: 01/10/25 HPI HPI Comments History of Present Illness Details The patient is a 59 year old male presenting for hypothyroid, aortic aneurysm, joint pain presenting for follow up Hypothyroid-stable on levothyroxine Chronic issues with swollen fingers and a history of carpal tunnel syndrome. Has seen orthopedics, rheumatology. He underwent carpal tunnel release surgery. Continues to have frequent hand and wrist pain. His ESR was fairly elevated on recent labs. aortic aneurysm-referral pending to vascular ROS see HPI PHYSICAL EXAM: GENERAL: Alert and oriented x 3. NAD EYES: EOMI. Anicteric. HENT: Moist mucous membranes. No scleral icterus. No cervical lymphadenopathy. LUNGS: Clear to auscultation bilaterally. CARDIOVASCULAR: Regular rate and rhythm. No murmur. No JVD. ABDOMEN: Soft, non-tender +bs EXTREMITIES: No edema. Non-tender. SKIN: No rashes or lesions. Warm. NEUROLOGIC: No focal neurological deficits. CN II-XII grossly intact PSYCHIATRIC: Cooperative. Appropriate mood and affect [facility] Medical History (Updated 02/26/25 @ 06:47 by Andie Baca MD) Broken leg History of hypothyroidism History of anxiety History of depression Surgical History Hx of colonoscopy (~04/12/15) Hx of surgical biopsy Family History Father No problems noted. Mother No problems noted. Social History Housing: House Alcohol intake: never Patient Tobacco Use Status: Never used Tobacco Substance Use Type: Marijuana service: No Current occupational status: retired and disabled Current occupation: left hand Cognitive needs: No Hearing needs: No Vision needs: Yes (rx glasses) Questionnaire PHQ-9 Over the last 2 weeks, how often have you been bothered by any of the following problems? 1. Little interest or pleasure in doing things: not at all 2. Feeling down, depressed, or hopeless: not at all 3. Trouble falling or staying asleep, or sleeping too much: not at all 4. Feeling tired or having little energy: not at all 5. Poor appetite or overeating: not at all 6. Feeling bad about yourself - or that you are a failure or have let yourself or your family down: not at all 7. Trouble concentrating on things, such as reading the newspaper or watching television: not at all 8. Moving or speaking so slowly that other people could have noticed. Or the opposite - being so fidgety or restless that you have been moving around a lot more than usual: not at all 9. Thoughts that you would be better off or of hurting yourself in some way: not at all Total score: 0 Source: Developed by Drs. Bret Alvarenga, Mabel Marte, Jake Flores and colleagues, with an educational marco from [employer]. Thrive Questionnaire Date Thrive assessed: 01/10/25 I am a: Patient What is your living situation today?: I have a steady place to live Within the past 12 months, did the food you bought not last and you didn't have the money to get more?: Never true Within the past 12 months, did you worry whether your food would run out before you got money to buy more?: Never true Do you have trouble paying for medicines?: No Do you have trouble getting transportation to medical appointments?: No Do you have trouble paying your heating and electricity bill?: No Do you have trouble taking care of your child, family member or friend?: No Do you have trouble with day-to-day activities such as bathing, preparing meals, shopping, managing finances, etc.?: No Are you currently unemployed and looking for a job?: No Are you interested in more education?: No Please select the resources that you would like help with: None THRIVE Score: 0 AUDIT C Alcohol Use Questionnaire (AUDIT-C) 1. How often do you have a drink containing alcohol?: Never 3. How often do you have six or more drinks on one occasion?: Never Total Score: 0 MARNIE-7 AMB Questionnaire MARNIE-7 Date MARNIE - 7 assessed: 01/10/25 Feeling nervous, anxious, or on edge: 0 = Not at all Not being able to stop or control worryin = Not at all Worrying too much about different things: 0 = Not at all Trouble relaxin = Not at all Being so restless that it is hard to sit still: 0 = Not at all Becoming easily annoyed or irritable: 0 = Not at all Feeling afraid as if something awful might happen: 0 = Not at all Total MARNIE-7 score (0-4 normal; 5-9 mild; 10-14 moderate; 15-21 severe): 0 Source: Developed by Drs. Bret Alvarenga, Mabel Marte, Jake Flores and colleagues, with an educational marco from [employer]. Physical exam (Primary Care) Vital Signs: Last Vital Signs Temp 97.6 F 02/22/25 13:44 Pulse 86 02/22/25 13:44 Resp 16 02/22/25 13:44 BP 140/80 H 02/22/25 13:44 Pulse Ox 96 02/22/25 13:44 Oxygen Delivery Method Room Air 02/22/25 13:44 BMI result Body Mass Index 31.9 Tobacco/Smoking Status: Tobacco use Status Tobacco use date assessed 02/22/25 02/22/25 13:45 Patient Tobacco Use Status Never used Tobacco 02/22/25 13:45 PHQ-9: PHQ-9 Score PHQ-9: Total score 0 02/22/25 14:00 Thrive Assessment: Date of Thrive Assessment Date Thrive assessed 01/10/25 02/22/25 13:45 Coding Level of Care Code Est Pt Level 4 (22089) Diagnoses Polyarthralgia M25.50 Bilateral hand pain M79.641; M79.642 History of depression Z86.59 Assessment & Plan Assessment & Plan (1) Polyarthralgia: Code(s): M25.50 - Pain in unspecified joint Category: Medical (2) Bilateral hand pain: Code(s): M79.641 - Pain in right hand; M79.642 - Pain in left hand Category: Medical (3) History of depression: Code(s): Z86.59 - Personal history of other mental and behavioral disorders Category: Medical Plan Polyarthralgia Bilateral hand pain-xrays ordered Start duloxetine 30mg daily x one week then increase to 60mg daily. Referral to rheumatology Hypothyroid-biochemically euthyroid on current levothyroxine dose. Orders: Orders TSH reflex Free T4 3 Months R94.6 - Abnormal results of thyroid function studies Rheumatoid Factor 02/22/25 M25.50 - Pain in unspecified joint Cyclic Citrullinated Peptide 02/22/25 M25.50 - Pain in unspecified joint Lyme IgG/IgM w/reflex to WB 02/22/25 M25.50 - Pain in unspecified joint XR Hand Gregorio 2V 02/22/25 M79.641 - Pain in right hand, M79.642 - Pain in left hand Thyroid Peroxidase Antibodies 3 Months R94.6 - Abnormal results of thyroid function studies Free T4 (Free Thyroxine) 3 Months R94.6 - Abnormal results of thyroid function studies Medications: New duloxetine 30 mg PO DAILY 7 caps 0RF levothyroxine 25 mcg PO DAILY 90 tabs 3RF duloxetine 60 mg PO DAILY 90 caps 3RF duloxetine then increase to 60mg daily 30 mg PO DAILY 7 caps 0RF
--- OUTSIDE RECORDS SUMMARY | 2025-02-22 16:01 | XMS_ITS | Clinical Summary ---
Author Organization [address] [place] [address] [place] [phone] Phone Care Team Providers Care Rating Examiner Name Role Phone Ruslan Clayton MD Primary Care Provider [phone] Allergies No known active allergies Medications sertraline (ZOLOFT) 50 mg tablet Take 1 tablet (50 mg total) by mouth 1 (one) time each day. Active Encounters Date Type Department Care Team Description 01/25/2025 11:00 AM EDT Office Visit Vascular Surgery - [place] [address] [place] [address] Braxton Broderick MD Aorto-iliac atherosclerosis ([facility] V24) (Primary Dx) from Last 3 Months Social History Tobacco Use Types Packs/Day Years Used Date Smoking Tobacco: Never Assessed Sex and Gender Information Value Date Recorded Sex Assigned at Not on file Legal Sex Male 7:19 AM EST Gender Identity Not on file Sexual Orientation Not on file Last Filed Vital Signs Vital Sign Reading Time Taken Comments Blood Pressure 153/51 01/25/2025 11:10 AM EDT Pulse 74 01/25/2025 11:10 AM EDT Temperature - - Respiratory Rate - - Oxygen Saturation - - Inhaled Oxygen Concentration - - Weight 94.8 kg (209 lb) 01/25/2025 11:10 AM EDT Height 175.3 cm (5' 9 ) 01/25/2025 11:10 AM EDT Body Mass Index 30.86 01/25/2025 11:10 AM EDT Plan of Treatment Health Maintenance Due Date Last Done Comments DTaP,Tdap,and Td Vaccines (1 - Tdap) 1982 Pneumococcal Vaccine: 50+ Years (1 of 1 - PCV) 2013 Zoster Vaccines (1 of 2) 2013 COVID-19 Vaccine (3 - 2023-2 5 season) 2024 03/27/2021, 02/26/2021 Cholesterol Screening (Lipid Panel) 01/13/2025 Colorectal Cancer Screening: Colonoscopy 01/13/2025 Depression Screening 01/13/2025 HIV Screening 01/13/2025 Hepatitis C Screening 01/13/2025 Social Influencers of Health Screening 01/13/2025 Hypertension/CHF/CAD Annual BMP Blood Test 01/25/2025 Influenza Vaccine (Season Ended) 2025 RSV Immunization Adult Patients (1 - 1-dose 75+ series) 2038 HIB Vaccines Aged Out No longer eligi ble based on patient's age to complete this topic HPV Vaccines Aged Out No longer eligi ble based on patient's age to complete this topic Hepatitis A Vaccines Aged Out No long er eligible based on patient's age to complete this topic Hepatitis B Vaccines Aged Out No long er eligible based on patient's age to complete this topic IPV Vaccines Aged Out No longer eligi ble based on patient's age to complete this topic MMR Vaccines Aged Out No longer eligi ble based on patient's age to complete this topic Meningococcal ACWY Vaccine Aged Out N o longer eligible based on patient's age to complete this topic Meningococcal B Vaccine Aged Out No l onger eligible based on patient's age to complete this topic Pneumococcal Vaccine: Pediatrics (0 to 5 Years) and At-Risk Patients (6 to 64 Years) Aged Out No longer eligible b ased on patient's age to complete this topic RSV Immunization Patients Under 20 months Aged Out No longer eligible b ased on patient's age to complete this topic Varicella Vaccines Aged Out No longer eligible based on patient's age to complete this topic Insurance [facility] Care Teams Rating Examiner Relationship Specialty Start Date End Date Ruslan Clayton MD [address] [place] [address] PCP - General Poultry Packer 11/22/18
--- OUTSIDE RECORDS SUMMARY | 2025-02-22 16:01 | XMS_ITS ---
Continuity of Care Document (CCD) Created on: February 22, 2025 Franck Rosa External Reference #: [id number] : [id number] Sex: Male Author Organization [facility] [address] [place] [address] Phone [phone] Care Team Providers Care Bill Peddler Name Role Phone Ruslan Clayton M.D. Care Team Information Receiv er [phone] Problems Active Problems Provider Date Osteoarthritis Neymar Austin M.D. Onset: Hypothyroidism Neymar Austin M.D. Onset: Social History Type Date Description Comments Sex Unknown Lives With Roommate ETOH Use Rarely consumes alcohol Tobacco Use Start: Unknown End: Unknown Patient is a former smoker Recreational Drug Use Smokes mar ijuana 1-2 times per day Medications Active Medications SIG Qnty Indications Ordering Provider Date Levothyroxine [id number] Tablets Take 1 Tablet By Mouth Every Day 90taseth Austin M.D. 06/17/2022 Sertraline [id number] Tablets Take 1 Tablet By Mouth Every Day 90tabs Neymar Austin M.D. 06/10/2022 Vital Signs Date Vital Result Comment 06/17/2022 8:59am BP Systolic 142 mmHg BP Diastolic 80 mmHg Heart Rate 63 /min Height 69 inches 5'9 Weight 226.50 lb BMI (Body Mass Index) 33.4 kg/m2 Results Test Acquired Date Facility Test Result H/L Range N ote TSH With Reflex To FT4 06/17/2022 [facility] Reference Lab TSH With Reflex To [...]
== END 2025-02-22 14:23 | disposition home or self-care (01) ==
LOC: HO.HMCHD 13:47
PROVIDERS: PCP Internal Medicine; Visit Provider Internal Medicine
DX: M25.50 Pain in unspecified joint (principal); M79.641 Pain in right hand; M79.642 Pain in left hand; Z86.59 Personal history of other mental and behavioral disorders

== ENCOUNTER → 2025-02-22 14:43 | Outpatient (BNV) | payer BC, SELFPAY | PROVIDERS: PCP Internal Medicine; Visit Provider Radiology Diagnostic Radiology | DX: M15.4 Erosive (osteo)arthritis (principal) | CPT/HCPCS: 73120 ==

== ENCOUNTER 2025-03-12 14:39 | Outpatient (AMB) | payer BC, SELFPAY ==
[2025-03-12 13:14] VITALS: BP 140/80; PULSE 67; TEMP 36.3; O2SAT 99; BMI 31.6
--- NOTE | 2025-03-12 13:14 | A.OFFPC_ITS ---
Vital Signs 03/12/25 13:14 Height 5 ft 9 in Weight 214 lb BMI 31.6 BP 140/80 H Blood Pressure Location Rt brachial Position Sitting Pulse 67 Pulse Source Pulse Oximeter Temp 97.3 F Temp Source Axillary Pulse Oximetry (%) 99 Oxygen Delivery Method Room Air Intake Visit Reasons: Routine- see comments Packaging Designer Required: No Accompanied by: Self / Same As Patient Allergies No Known Allergies Allergy (Verified 03/12/25 13:14) Tobacco use date assessed: 03/12/25 Dental Screening Dental Screen Date: 03/12/25 Did you have a dental visit in the last 12 months?: Yes Did you have a dental problem in the last 6 months where you did not have access to dental care?: No PFSH Medical History Broken leg History of hypothyroidism History of anxiety History of depression Surgical History Hx of colonoscopy (~04/12/15) Hx of surgical biopsy Family History (Updated 03/12/25 @ 14:54 by Aleena Nunez MA) Father No problems noted. Mother No problems noted. Social History Housing: House Alcohol intake: never Patient Tobacco Use Status: Former Tobacco user e-Cigarette/Vaping Use: Former Use Substance Use Type: Marijuana service: No Current occupational status: retired and disabled Current occupation: left hand Cognitive needs: No Hearing needs: No Vision needs: Yes (rx glasses) Questionnaire PHQ-9 Over the last 2 weeks, how often have you been bothered by any of the following problems? 1. Little interest or pleasure in doing things: not at all 2. Feeling down, depressed, or hopeless: not at all 3. Trouble falling or staying asleep, or sleeping too much: not at all 4. Feeling tired or having little energy: not at all 5. Poor appetite or overeating: not at all 6. Feeling bad about yourself - or that you are a failure or have let yourself or your family down: not at all 7. Trouble concentrating on things, such as reading the newspaper or watching television: not at all 8. Moving or speaking so slowly that other people could have noticed. Or the opposite - being so fidgety or restless that you have been moving around a lot more than usual: not at all 9. Thoughts that you would be better off or of hurting yourself in some way: not at all Total score: 0 Source: Developed by Drs. Bret Alvarenga, Mabel Mrate, Jake Flores and colleagues, with an educational marco from [employer]. Thrive Questionnaire Date Thrive assessed: 03/12/25 I am a: Patient Within the past 12 months, did the food you bought not last and you didn't have the money to get more?: Never true Within the past 12 months, did you worry whether your food would run out before you got money to buy more?: Never true Do you have trouble paying for medicines?: No Do you have trouble getting transportation to medical appointments?: No Do you have trouble paying your heating and electricity bill?: No Do you have trouble taking care of your child, family member or friend?: No Do you have trouble with day-to-day activities such as bathing, preparing meals, shopping, managing finances, etc.?: No Are you currently unemployed and looking for a job?: No Are you interested in more education?: No THRIVE Score: 0 AUDIT C Alcohol Use Questionnaire (AUDIT-C) 1. How often do you have a drink containing alcohol?: Monthly or less 2. How many drinks containing alcohol do you have on a typical day when you are drinking?: 1 or 2 3. How often do you have six or more drinks on one occasion?: Less than monthly Total Score: 2 MARNIE-7 AMB Questionnaire MARNIE-7 Date MARNIE - 7 assessed: 03/12/25 Feeling nervous, anxious, or on edge: 0 = Not at all Not being able to stop or control worryin = Not at all Worrying too much about different things: 0 = Not at all Trouble relaxin = Not at all Being so restless that it is hard to sit still: 0 = Not at all Becoming easily annoyed or irritable: 0 = Not at all Feeling afraid as if something awful might happen: 0 = Not at all Total MARNIE-7 score (0-4 normal; 5-9 mild; 10-14 moderate; 15-21 severe): 0 Source: Developed by Drs. Bret Alvarenga, Mabel Marte, Jake Flores and colleagues, with an educational marco from [employer]. Physical exam (Primary Care) Vital Signs: Last Vital Signs Temp 97.3 F 03/12/25 13:14 Pulse 67 03/12/25 13:14 BP 140/80 H 03/12/25 13:14 Pulse Ox 99 03/12/25 13:14 Oxygen Delivery Method Room Air 03/12/25 13:14 BMI result Body Mass Index 31.6 Tobacco/Smoking Status: Tobacco use Status Tobacco use date assessed 03/12/25 03/12/25 13:15 Patient Tobacco Use Status Former Tobacco user 03/12/25 14:55 e-Cigarette/Vaping Use Former Use 03/12/25 14:55 PHQ-9: PHQ-9 Score PHQ-9: Total score 0 03/12/25 14:55 Thrive Assessment: Date of Thrive Assessment Date Thrive assessed 03/12/25 03/12/25 13:15 Coding Level of Care Code Est Pt Level 3 (76714) Complex EM visit Add On G2211 Diagnoses Polyarthralgia M25.50 Assessment & Plan Assessment & Plan (1) Polyarthralgia: Code(s): M25.50 - Pain in unspecified joint Category: Medical Plan: Patient was seen by a vascular surgeon at [facility] and the aorta issues were addressed. He later saw a air chief marshal. No note from rheum available for me to review. Patient now sees Dr Nitin Albirght for PCP. I encouraged him to keep appt with her. Currently asymptomatic, on half the dose of synthroid that he was taking prior. Continue current medications and follow up with Dr Nitin Albright.
--- OUTSIDE RECORDS SUMMARY | 2025-03-12 14:42 | XMS_ITS | Continuity of Care Document ---
Author Organization [facility] [address] [place] [address] Phone [phone] Care Team Providers Care Shoe Dresser Name Role Phone Ruslan Clayton M.D. Care Team Information Receiv er [phone] Problems Active Problems Provider Date Osteoarthritis Neymar Austin M.D. Onset: Hypothyroidism Neymar Austin M.D. Onset: Social History Type Date Description Comments Sex Unknown Lives With Roommate ETOH Use Rarely consumes alcohol Tobacco Use Start: Unknown End: Unknown Patient is a former smoker Recreational Drug Use Smokes mar ijuana 1-2 times per day Medications Active Medications SIG Qnty Indications Ordering Provider Date Levothyroxine Spgetm66ixh Tablets Take 1 Tablet By Mouth Every Day 90taseth Austin M.D. 06/17/2022 Sertraline QHW57oi Tablets Take 1 Tablet By Mouth Every Day 90tabs Neymar Austin M.D. 06/10/2022 Vital Signs Date Vital Result Comment 06/17/2022 8:59am BP Systolic 142 mmHg BP Diastolic 80 mmHg Heart Rate 63 /min Height 69 inches 5'9 Weight 226.50 lb BMI (Body Mass Index) 33.4 kg/m2 Results Test Acquired Date Facility Test Result H/L Range N ote TSH With Reflex To FT4 06/17/2022 [facility] TSH With Reflex To [...]
--- OUTSIDE RECORDS SUMMARY | 2025-03-12 14:42 | XMS_ITS | Clinical Summary ---
Author Organization [address] [place] [address] [place] [id number] Phone Care Team Providers Care Map Maker Name Role Phone Ruslan Clayton MD Primary Care Provider [phone] Allergies No known active allergies Medications sertraline (ZOLOFT) 50 mg tablet Take 1 tablet (50 mg total) by mouth 1 (one) time each day. Active Encounters Date Type Department Care Team Description 01/25/2025 11:00 AM EDT Office Visit Vascular Surgery - [place] [address] [place] [address] Braxton Broderick MD Aorto-iliac atherosclerosis ([facility] V24) (Primary Dx) from Last [...] patient's age to complete this topic Insurance [facility] Care Teams Map Maker Relationship Specialty Start Date End Date Ruslan Clayton MD [address] [place] [address] [place] PCP - General Iron And Steel Work Supervisor 11/22/18
== END 2025-03-12 15:33 | disposition home or self-care (01) ==
LOC: HO.HMCHD 14:39
PROVIDERS: PCP Internal Medicine; Visit Provider Internal Medicine
DX: M25.50 Pain in unspecified joint (principal)

== ENCOUNTER → 2025-03-12 14:39 | Outpatient (BNVA) | payer BC, SELFPAY | PROVIDERS: PCP Internal Medicine; Visit Provider Internal Medicine | DX: Z13.89 Encounter for screening for other disorder (principal) ==

== ENCOUNTER 2025-03-26 08:18 | Outpatient (AMB) | payer BC, SELFPAY ==
--- OUTSIDE RECORDS SUMMARY | 2025-03-26 08:26 | XMS_ITS | Continuity of Care Document ---
Author Organization [facility] [address] [place] [address] Phone [phone] Care Team Providers Care Butter Production Supervisor Name Role Phone Ruslan Clayton M.D. Care Team Information Receiv er [phone] Problems Active Problems Provider Date Osteoarthritis Neymar Austin M.D. Onset: Hypothyroidism Neymar Austin M.D. Onset: Social History Type Date Description Comments Sex Unknown Lives With Roommate ETOH Use Rarely consumes alcohol Tobacco Use Start: Unknown End: Unknown Patient is a former smoker Recreational Drug Use Smokes mar ijuana 1-2 times per day Medications Active Medications SIG Qnty Indications Ordering Provider Date Levothyroxine Bistjy44vhv Tablets Take 1 Tablet By Mouth Every Day 90taseth Austin M.D. 06/17/2022 Sertraline JAF17on Tablets Take 1 Tablet By Mouth Every Day 90tabs Neymar Austin M.D. 06/10/2022 Vital Signs Date Vital Result Comment 06/17/2022 8:59am BP Systolic 142 mmHg BP Diastolic 80 mmHg Heart Rate 63 /min Height 69 inches 5'9 Weight 226.50 lb BMI (Body Mass Index) 33.4 kg/m2 Results Test Acquired Date Facility Test Result H/L Range N ote TSH With Reflex To FT4 06/17/2022 [facility] Reference Lab TSH With Reflex [...]
--- NOTE | 2025-03-26 08:27 | MHC.OFFVIS ---
Vital Signs 03/26/25 08:28 Height 5 ft 9 in Weight 214 lb BMI 31.6 Intake Visit Reasons: OV Discuss left wrist CTR surgery Intake Note: Franck is a 59 year old left hand dominant male who presents today for a follow up and to discuss surgery for his left carpal tunnel syndrome.Hx of right CTR and index trigger release. IMPRESSION: Vnsq-sp-nlapqxyo bilateral median neuropathy across the carpal tunnel. Allergies No Known Allergies Allergy (Verified 03/26/25 08:32) PFSH Medical History (Updated 03/26/25 @ 08:34 by REG Jarvis) Hx of fracture of femur Broken leg History of hypothyroidism History of anxiety History of depression Surgical History Hx of colonoscopy (~04/12/15) Hx of surgical biopsy Family History (Updated 03/12/25 @ 14:54 by Aleena Nunez MA) Father No problems noted. Mother No problems noted. Social History Housing: House Alcohol intake: never Patient Tobacco Use Status: Former Tobacco user e-Cigarette/Vaping Use: Former Use Substance Use Type: Marijuana service: No Current occupational status: retired and disabled Current occupation: left hand Cognitive needs: No Hearing needs: No Vision needs: Yes (rx glasses) Physical Exam Vital Signs: BMI result Body Mass Index 31.6 Assessment & Plan Assessment & Plan (1) Carpal tunnel syndrome of left wrist: Code(s): G56.02 - Carpal tunnel syndrome, left upper limb Category: Medical (2) Carpal tunnel syndrome of right wrist: Code(s): G56.01 - Carpal tunnel syndrome, right upper limb Category: Medical Plan History of Present Illness The patient is a 59-year-old male presenting with discomfort and numbness in the left hand, having a history of bilateral carpal tunnel syndrome. He underwent right carpal tunnel release surgery in 2023, observing only partial symptom relief. The patient reports ongoing issues with tightness and periodic numbness in the right hand and has completed trigger finger surgery on the same hand with significant relief. Currently, he experiences worsening symptoms in the left hand, such as numbness and pain components. The intermittent symptoms are particularly concerning to him, prompting his decision to evaluate surgical options. Despite the intervention on the right side, the persistence of numbness affects his quality of life, leading to a preference for surgical intervention on the left hand. Previous evaluations indicated carpal tunnel syndrome on both sides, with the patient preferring to avoid conservative measures like injections due to inadequate symptomatic control. Review of Systems - Neurological: Reports intermittent numbness and tingling in the left hand. - Musculoskeletal: Reports pain and numbness related to arthritis. - General: Denies diabetes. Physical Exam Neuro: normal sensation of the tips of all digits of the left hand in the office today Good APB muscle belly firing Good finger cross Vascular:Capillary refill brisk. ROM:Patient can make a fist and extend all their digits. Skin:No lacerations or abrasions noted. General:No ecchymosis. No erythema or evidence of infection. Results - Previous diagnostics confirming bilateral carpal tunnel syndrome. Plan I educated the patient about the condition. I discussed both operative and nonoperative treatment options. The patient would like to proceed with surgery. The risks and benefits of operative treatment were discussed with the patient and the patient wishes to proceed with surgery. These risks include, but are not limited to, risk of damage to blood vessels, nerves, tendons, infection, recurrence, incomplete relief of preoperative symptoms, persistent pain, possible need for further surgery, and the risks associated with regional blocks and/or anesthesia. Plan is to take the patient to the operating room at some point in the next few weeks for the following procedures: 1. Left carpal tunnel release under local All of the preoperative paperwork including the consent was discussed today. All of the patient's questions were answered in the clinic today. The patient understands that they will be in contact with our surgical appliances salesperson to discuss scheduling their procedure. Patient denies diabetes, blood thinners, asthma, heart issues, lung issues, kidney issues, or current smoking. Discussion Notes I discussed with the patient the diagnosis of carpal tunnel syndrome in the left hand, addressing the surgical procedure's efficacy in alleviating symptoms. We explored the progression of symptoms despite prior conservative interventions and reviewed the surgical benefits over alternative therapies. I explained the potential risks and outlined the surgical steps and post-operative care, ensuring the patient comprehended the various stages, particularly the need to avoid water immersion and heavy lifting post-procedure. Alternative treatments such as injections were deemed inadequate for durable relief. With the patient's concurrence, I obtained surgical consent, terminating with a connection to schedule the procedure date. Coding Level of Care Code Est Pt Level 4 (63577) Diagnoses Carpal tunnel syndrome of left wrist G56.02 Carpal tunnel syndrome of right wrist G56.01
[2025-03-26 08:28] VITALS: BMI 31.6
== END 2025-03-26 08:50 | disposition home or self-care (01) ==
LOC: HO.HOS 08:19
PROVIDERS: PCP Internal Medicine
DX: G56.03 Carpal tunnel syndrome, bilateral upper limbs (principal)
CPT/HCPCS: 99214

== ENCOUNTER → 2025-03-26 08:18 | Outpatient (BNVA) | payer BC, SELFPAY | PROVIDERS: PCP Internal Medicine ==

== ENCOUNTER 2025-04-02 08:20 | Day surgery (SDC) | payer BC, SELFPAY ==
--- OUTSIDE RECORDS SUMMARY | 2025-03-27 13:39 | XMS_ITS | Continuity of Care Document ---
Author Organization [facility] [address] [place] [address] Phone [phone] Care Team Providers Care Dragline Engineer Name Role Phone Ruslan Clayton M.D. Care Team Information Receiv er [phone] Problems Active Problems Provider Date Osteoarthritis Neymar Austin M.D. Onset: Hypothyroidism Neymar Austin M.D. Onset: Social History Type Date Description Comments Sex Unknown Lives With Roommate ETOH Use Rarely consumes alcohol Tobacco Use Start: Unknown End: Unknown Patient is a former smoker Recreational Drug Use Smokes mar ijuana 1-2 times per day Medications Active Medications SIG Qnty Indications Ordering Provider Date Levothyroxine Pkwdcq38vzz Tablets Take 1 Tablet By Mouth Every Day 90taseth Austin M.D. 06/17/2022 Sertraline PDH44zv Tablets Take 1 Tablet By Mouth Every [...] Neymar Austin M.D. 06/17/2022 M19.90 Osteoarthritis Neymar costelol M.D. Plan of Treatment 06/17/2022 - Neymar Austin M.D.* E03.9 Hypothyroidism, unspecified * M19.90 Osteoarthritis * Functional Status Description No Information Available Mental Status Description No Information Available Referrals Description No Information Available
[2025-03-29 13:22] VITALS: BMI 31.6
[2025-04-02 08:30] VITALS: BP 134/76; PULSE 78; RESP 20; TEMP 36.6; O2SAT 97
--- NOTE | 2025-04-02 09:52 | MHC.SHP ---
Pre-Procedural Eval Section A - 24 Hr Update-Section A only Date of Service: 04/02/25 The patient is an INPATIENT: No Changes since office visit: No Cold of Flu in the past 2 weeks, No New Medical Problems, No Changes in Medication and No Patient answered all questions The patient has been examined within 24 hours of the surgical procedure. The History & Physical has been completed within 30 days and I have reviewed it.: Yes Section B - Complete if H&P > 30 days Chief Complaint: Carpal tunnel syndrome, left upper limb Allergies: Allergies Allergy/AdvReac Type Severity Reaction Status Date / Time No Known Allergies Allergy Verified 03/26/25 08:32 Plan Diagnosis/Plan: Unchanged I have reviewed the history and physical and performed a pertinent physical examination on my patient. No changes have occurred unless specified. Time Spent With Patient Time: Total time managing care of this patient today ____ minutes.
--- NOTE | 2025-04-02 09:53 | W.PM.OPN ---
Operative Note Operative Note Date of Service: 04/02/25 Narrative: Preop diagnosis: 1. Left Carpal tunnel syndrome Postop diagnosis: same Procedure: 1. Left Carpal tunnel release Surgeon: Daylin Jang MD Shopper Marketing Manager: None Anesthesia: local block using 1% lidocaine with epinephrine Findings: Thickened transverse carpal ligament. EBL: Less than 5 mL Specimens: None Complications: None Disposition: Brought to recovery room in stable condition Plan: Follow-up for 10-14 days for wound check and suture removal Indications: The patient is 59 years old, with left carpal tunnel syndrome that has been unresponsive to nonoperative management. The risks and benefits of operative treatment including but not limited to risk of damage to blood vessels, nerves, tendons, infection, persistent pain, persistent symptoms, or possible need for additional surgery were discussed with the patient and the patient wishes to proceed with surgery. Procedure: Once consent was obtained a local block was performed using a combination of 1% lidocaine with epinephrine. The patient was then brought back to the operating suite and placed on the operative table in supine position. The left upper extremity was prepped and draped in a standard surgical fashion. Once assured that we had a good block, a 2.0 cm longitudinal incision was made centered over the carpal tunnel. The incision was made through the skin to the subcutaneous tissues using a #15 blade. Dissection was made down to the level of the transverse carpal ligament with care being taken to protect the palmar cutaneous nerve. Once the transverse carpal ligament was clearly visualized, a longitudinal incision was made in the transverse carpal ligament 1st using a #15 blade, then using tenotomy scissors under direct visualization. Care was taken to look for and protect the motor branch of the median nerve when seen in this area. Once satisfied with our carpal tunnel release the wound was copiously irrigated with normal saline and hemostasis was obtained with a brief period of local pressure. The skin edges were reapproximated with some 5.0 nylon suture material and a sterile dressing was applied. The patient appears to have tolerated the procedure well and with no complications. All digits were well vascularized at the conclusion of the case.
[2025-04-02 11:57] VITALS: BP 170/77; PULSE 59; RESP 16; O2SAT 97
== END 2025-04-02 11:58 | disposition home or self-care (01) ==
PROVIDERS: PCP Internal Medicine; Visit Provider Orthopaedic Surgery
PROC: (CPT 64721; principal; 2025-04-02 08:00)
DX: G56.02 Carpal tunnel syndrome, left upper limb (principal); R20.0 Anesthesia of skin; R20.2 Paresthesia of skin; Z87.891 Personal history of nicotine dependence; Z98.890 Other specified postprocedural states
CPT/HCPCS: 64721; J0171; J2003; J2004

== ENCOUNTER → 2025-04-02 08:20 | Outpatient (BNV) | payer BC, SELFPAY | PROVIDERS: PCP Internal Medicine; Visit Provider Orthopaedic Surgery | DX: G56.02 Carpal tunnel syndrome, left upper limb (principal) | CPT/HCPCS: 64721 ==

== ENCOUNTER 2025-04-18 13:51 | Outpatient (AMB) | payer BC, SELFPAY ==
[2025-04-18 13:54] VITALS: BMI 31.6
--- NOTE | 2025-04-18 13:54 | A.OFFVIS_ITS ---
Vital Signs 04/18/25 13:54 Height 5 ft 9 in Weight 214 lb BMI 31.6 Intake Visit Reasons: PO LT CTR 04/02/25 AR Intake Note: Franck is a 58 year old left hand dominant male who presents today post operatively status post left carpal tunnel release DOS: 04/02/[address] Daylin Jang. States his CTS have resolved. He does have tenderness but is doing well over all. Sutures removed and steri strips applied. Allergies No Known Allergies Allergy (Verified 04/18/25 13:58) HPI HPI PO LT CTR 04/02/25 AR: Details: Franck is a 58 year old left hand dominant male who presents today post operatively status post left carpal tunnel release DOS: 04/02/[address] Daylin aJng. States his CTS have resolved. He does have tenderness but is doing well over all. Sutures removed and steri strips applied. [facility] Medical History (Updated 03/26/25 @ 08:34 by REG Jarvis) Hx of fracture of femur Broken leg History of hypothyroidism History of anxiety History of depression Surgical History (Updated 03/29/25 @ 13:20 by Kenia Westbrook RN) History of carpal tunnel surgery of right wrist Hx of colonoscopy (~04/12/15) Hx of surgical biopsy Family History (Updated 03/12/25 @ 14:54 by Aleena Nunez MA) Father No problems noted. Mother No problems noted. Social History Housing: House Alcohol intake: never Patient Tobacco Use Status: Former Tobacco user e-Cigarette/Vaping Use: Former Use Substance Use Type: Marijuana service: No Current occupational status: retired and disabled Current occupation: left hand Cognitive needs: No Hearing needs: No Vision needs: Yes (rx glasses) Review of Systems Const All systems reviewed & are unremarkable except as noted in HPI and below Physical Exam Vital Signs: BMI result Body Mass Index 31.6 Extrem Other: Evaluation of left Upper Extremity: The patient is alert, oriented, and in no acute distress All incisions are well healed with no erythema drainage or evidence of infection. Mild tenderness over the carpal tunnel incision, but no hypersensitivity. Neuro: Median, Ulnar, Radial nerves motor and sensory intact and sensation is normal to the tips of all digits today in clinic No thenar or intrinsic wasting Good APB muscle belly firing and good finger cross He can make a fist and extend all of his digits with no locking or catching. He does complain of some tightness over the dorsal aspect of the index finger MCP and PIP joints when he makes a fist, likely secondary to some mild stiffness. Well approximated and well healing incision site noted over the volar left wrist Vascular: Cap refill brisk ROM: He can make a fist and extend all his digits Assessment & Plan Assessment & Plan (1) Carpal tunnel syndrome of left wrist: Code(s): G56.02 - Carpal tunnel syndrome, left upper limb Category: Medical Plan 1. Status post left carpal tunnel release DOS 04/02/2025 Patient appears to be recovering well postoperatively Patient is educated about the typical recovery course No further acute follow-up indicated, as patient is recovering very well Patient is amenable to this plan Follow-up as needed Coding Level of Care Code Global (01942) Diagnoses Carpal tunnel syndrome of left wrist G56.02
--- OUTSIDE RECORDS SUMMARY | 2025-04-18 16:32 | XMS_ITS | Continuity of Care Document ---
Author Organization [facility] [address] [facility] [address] [place] [address] Phone [phone] Care Team Providers Care Flatwork Presser Name Role Phone Ruslan Clayton M.D. Care Team Information Receiv er [phone] Problems Active Problems Provider Date Osteoarthritis Neymar Austin M.D. Onset: Hypothyroidism Neymar Austin M.D. Onset: Social History Type Date Description Comments Sex Male Sex Unknown Lives With Roommate ETOH Use Rarely consumes alcohol Tobacco Use Start: Unknown End: Unknown Patient is a former smoker Recreational Drug Use Smokes mar ijuana 1-2 times per day Medications Active Medications SIG Qnty Indications Ordering Provider Date Levothyroxine Cfptee86yfk Tablets Take 1 Tablet By Mouth Every Day 90taseth Austin M.D. 06/17/2022 Sertraline PQS99jz Tablets Take 1 Tablet By Mouth Every Day 90tabs Neymar Austin M.D. 06/10/2022 Vital Signs Date Vital Result Comment 06/17/2022 8:59am BP Systolic 142 mmHg BP Diastolic 80 mmHg Heart Rate 63 /min Height 69 inches 5'9 Weight 226.50 lb BMI (Body Mass Index) 33.4 kg/m2 Results Test Acquired Date Facility Test Result H/L Range N ote TSH With Reflex To FT4 06/17/2022 [facility] TSH With Reflex [...]
== END 2025-04-18 14:29 | disposition home or self-care (01) ==
LOC: HO.HOS 13:52
PROVIDERS: PCP Internal Medicine
DX: G56.02 Carpal tunnel syndrome, left upper limb (principal)
CPT/HCPCS: 99024

== ENCOUNTER 2025-06-18 15:55 | Outpatient (REF) | payer BC, SELFPAY ==
--- OUTSIDE RECORDS SUMMARY | 2025-06-18 17:48 | XMS_ITS | Continuity of Care Document ---
Author Organization [facility] [address] [facility] [address] [place] [address] Phone [phone] Care Team Providers Care Optical Glass Inspector Name Role Phone Ruslan Clayton M.D. Care Team Information Receiv er [phone] Problems Active Problems Provider Date Osteoarthritis Neymar [...] SIG Qnty Indications Ordering Provider Date Levothyroxine Jslzxn73wxz Tablets Take 1 Tablet By Mouth Every Day 90taseth Austin M.D. 06/17/2022 Sertraline XIH49sg Tablets Take 1 Tablet By Mouth Every Day 90tabs Neymar Austni M.D. 06/10/2022 Vital Signs Date Vital Result Comment 06/17/2022 8:59am BP Systolic 142 mmHg BP Diastolic 80 mmHg Heart Rate 63 /min Height 69 inches 5'9 Weight 226.50 lb BMI (Body Mass Index) 33.4 kg/m2 Results Test Acquired Date Facility Test Result H/L Range N ote TSH With Reflex To FT4 06/17/2022 [facility] TSH With Reflex To [...]
--- OUTSIDE RECORDS SUMMARY | 2025-06-18 17:49 | XMS_ITS | Patient Health Record ---
Author Organization [facility] Address [address] [place] [address] Care Team Providers Care Golf Shoe Spike Assembler Name Role Phone Forrest (RETIRED) Ruslan ESCALONA Primary Care Provide r Unavailable Bret Correa Unavailable [phone] Reason For Referral No Information Medications Medication SIG (Take, Route, Frequency, Duration) Notes Start Date End Date Status Ibuprofen 400 MG 1 tablet Orally Twic e a day Active Levothyroxine Sodium 50 MCG TAKE 1 TABLE T BY MOUTH ONCE A DAY Oral for 30 Active Sertraline HCl 50 MG TAKE 1/2 TABLET ORA LLY DAILY X 1WK, THEN TAKE 1 TABLET BY MOUTH EVERY DAY TO FOLLOW Oral for 30 Active MoviPrep 100 GM as directed Orally a s directed for 1 dose 01/27/2015 Active Problems Problem Type SNOMED Code ICD Code Onset Dates Problem Status W/U Status Risk Notes Problem Colon cancer screening ([id number]) Colon cancer screening (V76.51) Active confirmed Problem alf current use of non-steroidal anti-inflammat ories (NSAID) (V58.64) Active confirmed Plan Of Treatment Future Test Test Name Order Date COLONOSCOPY 01/25/2015 Insurance Providers Payer Name Payer Address Payer Phone Subscriber Number Group Number Insured Name Patient Relationship to Insured Coverage Start Date Coverage End Date O [employer] [address] [place] [address] [id number]ARY Self - patient is the insured Medical (General) History Medical History History ICD Code Denies RI,DM,CVA,Lung disease,renal dise ase Hypothyroidism Depression Arthritis in hands Surgical History Surgery Date(Month/Year) Broken femurs-- surgery Pilonidal cyst
--- OUTSIDE RECORDS SUMMARY | 2025-06-18 17:49 | XMS_ITS | Clinical Summary ---
Author Organization [address] [place] [address] [place] [address] Phone Care Team Providers Care Information Assistant Name Role Phone Ruslan Clayton MD Primary Care Provider [phone] Allergies No known active allergies Medications sertraline (ZOLOFT) 50 mg tablet Take 1 tablet (50 mg total) by mouth 1 (one) time each day. Active Social History Tobacco Use Types Packs/Day Years [...] - 2023-2 5 season) 2024 03/27/2021, 02/26/2021 Depression Screening 10/25/2024 Cholesterol Screening (Lipid Panel) 01/13/2025 Colorectal Cancer Screening: Colonoscopy 01/13/2025 HIV Screening 01/13/2025 Hepatitis C Screening 01/13/2025 Social Influencers of Health Screening 01/13/2025 Hypertension/CHF/CAD Annual BMP Blood Test 01/25/2025 Influenza Vaccine (#1) 2025 RSV Immunization Adult Patients (1 - [...] patient's age to complete this topic Insurance Care Teams Information Assistant Relationship Specialty Start Date End Date Ruslan Clayton MD [address] [place] [address] Dr Dior [place] PCP - General Pastoral Assistant 11/22/18
[2025-06-18 18:13] LABS: Free T4 (Free Thyroxine) 0.95 ng/dL (0.71-1.85)
== END 2025-06-18 15:56 | disposition home or self-care (01) ==
LOC: HO.LAB 15:55
PROVIDERS: PCP Internal Medicine; Visit Provider Internal Medicine
DX: R94.6 Abnormal results of thyroid function studies (principal)
CPT/HCPCS: 36415; 84439; 84443; 86376

== ENCOUNTER 2025-06-21 16:00 | Outpatient (AMB) | payer BC, SELFPAY ==
[2025-06-21 16:04] VITALS: BP 150/84; PULSE 68; TEMP 36.2; O2SAT 97; BMI 32.0
--- NOTE | 2025-06-21 16:04 | MHC.PC.OV ---
Vital Signs 06/21/25 16:04 Height 5 ft 9 in Weight 217 lb BMI 32.0 BP 150/84 H Blood Pressure Location Lt brachial Position Sitting Pulse 68 Pulse Source Pulse Oximeter Temp 97.1 F Temp Source Temporal Artery Scan Pulse Oximetry (%) 97 Oxygen Delivery Method Room Air Intake Visit Reasons: 3 MO F/U - see comments Product Safety Technical Assistant Required: No Accompanied by: Self / Same As Patient Allergies No Known Allergies Allergy (Verified 06/21/25 16:04) Tobacco use date assessed: 06/21/25 Dental Screening Dental Screen Date: 06/21/25 Did you have a dental visit in the last 12 months?: Yes Did you have a dental problem in the last 6 months where you did not have access to dental care?: No HPI HPI Comments History of Present Illness Details The patient is a 59 year old male presenting for hypothyroid, aortic aneurysm, joint pain presenting for follow up Hypothyroid-stable on levothyroxine Chronic issues with swollen fingers and a history of carpal tunnel syndrome. Has seen orthopedics, rheumatology in the past. History of bilateral carpal tunnel release surgery-the left recently. Continues to have frequent hand and wrist pain. His ESR was fairly elevated on recent labs and xray showed erosive changes. He has an appointment scheduled with [facility] rheumatology scheduled in June CV: aortic aneurysm. Referred to vascular BH: Stable on sertraline. Did not tolerate duloxetine ROS see HPI PHYSICAL EXAM: GENERAL: Alert and oriented x 3. NAD EYES: EOMI. Anicteric. HENT: Moist mucous membranes. No scleral icterus. No cervical lymphadenopathy. LUNGS: Clear to auscultation bilaterally. CARDIOVASCULAR: Regular rate and rhythm. No murmur. No JVD. ABDOMEN: Soft, non-tender +bs EXTREMITIES: No edema. Non-tender. SKIN: No rashes or lesions. Warm. NEUROLOGIC: No focal neurological deficits. CN II-XII grossly intact PSYCHIATRIC: Cooperative. Appropriate mood and affect [facility] Medical History Hx of fracture of femur Broken leg History of hypothyroidism History of anxiety History of depression Surgical History History of carpal tunnel surgery of right wrist Hx of colonoscopy (~04/12/15) Hx of surgical biopsy Family History Father No problems noted. Mother No problems noted. Social History Housing: House Alcohol intake: never Patient Tobacco Use Status: Former Tobacco user e-Cigarette/Vaping Use: Former Use Substance Use Type: Marijuana service: No Current occupational status: retired and disabled Current occupation: left hand Cognitive needs: No Hearing needs: No Vision needs: Yes (rx glasses) Questionnaire PHQ-9 Over the last 2 weeks, how often have you been bothered by any of the following problems? 1. Little interest or pleasure in doing things: not at all 2. Feeling down, depressed, or hopeless: not at all 3. Trouble falling or staying asleep, or sleeping too much: not at all 4. Feeling tired or having little energy: not at all 5. Poor appetite or overeating: not at all 6. Feeling bad about yourself - or that you are a failure or have let yourself or your family down: not at all 7. Trouble concentrating on things, such as reading the newspaper or watching television: not at all 8. Moving or speaking so slowly that other people could have noticed. Or the opposite - being so fidgety or restless that you have been moving around a lot more than usual: not at all 9. Thoughts that you would be better off or of hurting yourself in some way: not at all Total score: 0 Depression Screening Interpretation: Negative Depression Screening Done: Yes 09338 - PHQ-9 Billing: Yes Source: Developed by Drs. Bret Alvarenga, Mabel Marte, Jake Flores and colleagues, with an educational marco from [employer]. Thrive Questionnaire Date Thrive assessed: 06/21/25 I am a: Patient Within the past 12 months, did the food you bought not last and you didn't have the money to get more?: Never true Within the past 12 months, did you worry whether your food would run out before you got money to buy more?: Never true Do you have trouble paying for medicines?: No Do you have trouble getting transportation to medical appointments?: No Do you have trouble paying your heating and electricity bill?: No Do you have trouble taking care of your child, family member or friend?: No Do you have trouble with day-to-day activities such as bathing, preparing meals, shopping, managing finances, etc.?: No Are you currently unemployed and looking for a job?: No Are you interested in more education?: No THRIVE Score: 0 AUDIT C Alcohol Use Questionnaire (AUDIT-C) 1. How often do you have a drink containing alcohol?: Monthly or less 2. How many drinks containing alcohol do you have on a typical day when you are drinking?: 1 or 2 3. How often do you have six or more drinks on one occasion?: Less than monthly Total Score: 2 MARNIE-7 AMB Questionnaire MARNIE-7 Date MARNIE - 7 assessed: 06/21/25 Feeling nervous, anxious, or on edge: 0 = Not at all Not being able to stop or control worryin = Not at all Worrying too much about different things: 0 = Not at all Trouble relaxin = Not at all Being so restless that it is hard to sit still: 0 = Not at all Becoming easily annoyed or irritable: 0 = Not at all Feeling afraid as if something awful might happen: 0 = Not at all Total MARNIE-7 score (0-4 normal; 5-9 mild; 10-14 moderate; 15-21 severe): 0 Source: Developed by Drs. Bret Alvarenga, Mabel Marte, Jake Flores and colleagues, with an educational marco from [employer]. Physical exam (Primary Care) Vital Signs: Last Vital Signs Temp 97.1 F 06/21/25 16:04 Pulse 68 06/21/25 16:04 BP 150/84 H 06/21/25 16:04 Pulse Ox 97 06/21/25 16:04 Oxygen Delivery Method Room Air 06/21/25 16:04 BMI result Body Mass Index 32.0 Tobacco/Smoking Status: Tobacco use Status Tobacco use date assessed 06/21/25 06/21/25 16:10 Patient Tobacco Use Status Former Tobacco user 06/21/25 16:10 e-Cigarette/Vaping Use Former Use 06/21/25 16:10 PHQ-9: PHQ-9 Score PHQ-9: Total score 0 06/23/25 08:58 Depression Screening Interpretation: Negative Thrive Assessment: Date of Thrive Assessment Date Thrive assessed 06/21/25 06/21/25 16:10 Coding Level of Care Code Est Pt Level 4 (32515) Diagnoses Aortic atherosclerosis I70.0 Psoriatic arthritis L40.50 Recurrent major depressive disorder, in partial remission F33.41 Active/Remission status: in partial remission Major depression recurrence: recurrent Additional Codes PHQ-9 - 05134 - PHQ-9 Billing: Yes ([id number]) Assessment & Plan Assessment & Plan (1) Aortic atherosclerosis: Comment: 5 year repeat -2029 Code(s): I70.0 - Atherosclerosis of aorta Category: Medical (2) Psoriatic arthritis: Code(s): L40.50 - Arthropathic psoriasis, unspecified Category: Medical (3) Major depressive disorder: Code(s): F32.9 - Major depressive disorder, single episode, unspecified Category: Medical Qualifiers: Active/Remission status: in partial remission Major depression recurrence: recurrent Qualified Code(s): F33.41 - Major depressive disorder, recurrent, in partial remission Plan 59 year old for follow up Arthritis, erosive-upcoming rheumatology visit Hypothyroid-stable on levothyroxine Depression stable on sertraline Medications: New sertraline 50 mg PO DAILY 90 tabs 3RF Refilled levothyroxine 25 mcg PO DAILY 90 tabs 3RF
--- OUTSIDE RECORDS SUMMARY | 2025-06-21 16:18 | XMS_ITS | Encounter Summary ---
Author Organization [facility] Address [address] [facility] [address] [place] [phone] Phone Care Team Providers Care Substitute Teacher Name Role Phone Ruslan Clayton MD Primary Care Provider Encounter Details Date Type Department Care Team (Late st Contact Info) Description 06/14/2019 Procedure Pass [facility] [address] [place] [address] Social History Tobacco Use Types Packs/Day Years Used Date Smoking Tobacco: Never Assessed Sex and Gender Information Value Date Recorded Sex Assigned at Not on file Legal Sex Male 10:53 AM EDT Gender Identity Not on file Sexual Orientation Not on file documented as of this encounter Plan of Treatment Not on file documented as of this encounter Visit Diagnoses Not on filedocumented in this encounter Care Teams Substitute Teacher Relationship Specialty Start Date End Date Ruslan Clayton MD [address] [place] [address] [place] [address] PCP - General Internal Medicine 01/12/19 documented as of this encounter Additional Source Comments The information contained in this document represents components of the legal health record. It is not the complete legal health record.[facility]
--- OUTSIDE RECORDS SUMMARY | 2025-06-21 16:18 | XMS_ITS | Continuity of Care Document ---
Author Organization [facility] [address] [facility] [address] [place] [address] Phone [phone] Care Team Providers Care Office Equipment Technician Name Role Phone Ruslan Clayton M.D. Care Team Information Receiv er [phone] Problems Active Problems Provider Date Osteoarthritis Neymar [...] SIG Qnty Indications Ordering Provider Date Levothyroxine Zrzvvf55shl Tablets Take 1 Tablet By Mouth Every Day 90taseth Austin M.D. 06/17/2022 Sertraline XBB20sc Tablets Take 1 Tablet By Mouth Every Day 90tabs Neymar Austin M.D. 06/10/2022 Vital Signs Date Vital Result Comment 06/17/2022 8:59am BP Systolic 142 mmHg BP Diastolic 80 mmHg Heart Rate 63 /min Height 69 inches 5'9 Weight 226.50 lb BMI (Body Mass Index) 33.4 kg/m2 Results Test Acquired Date Facility Test Result H/L Range N ote TSH With Reflex To FT4 06/17/2022 [facility] TSH With Reflex To FT4 [...]
--- OUTSIDE RECORDS SUMMARY | 2025-06-21 16:18 | XMS_ITS | Encounter Summary ---
Author Organization [facility] Address [address] [facility] [address] [place] [address] Phone Care Team Providers Care Frame Opener Name Role Phone Ruslan Clayton MD Primary Care Provider Encounter Details Date Type Department Care Team (Late st Contact Info) Description 06/14/2019 Procedure Pass [facility] [address] [place] [address] Social History Tobacco Use Types Packs/Day Years [...] on filedocumented in this encounter Care Teams Frame Opener Relationship Specialty Start Date End Date Ruslan Clayton MD [address] [place] [address] [place] [address] PCP - General Internal Medicine 01/12/19 documented as of this encounter Additional Source Comments The information contained in this document represents components of the legal health record. It is not the complete legal health record.[facility]
--- OUTSIDE RECORDS SUMMARY | 2025-06-21 16:18 | XMS_ITS | Clinical Summary ---
Author Organization [facility] Address [address] [place] [phone] Phone Care Team Providers Care Cisco Unified Communications Engineer Name Role Phone Ruslan Clayton MD Primary Care Provider Medications levothyroxine (SYNTHROID, LEVOTHROID) 50 MCG tablet Take 50 mcg by mouth every morning. Active sertraline (ZOLOFT) 50 MG tablet Take 50 mg by mouth daily. Active Active Problems No known active problems Social History Tobacco Use Types Packs/Day Years Used Date Smoking Tobacco: Never Assessed Education Answer Date Recorded Are you interested in more education? Not on john e 02/19/2023 Are you concerned about learning? Not on file 02/19/2023 No 02/19/2023 No 02/19/2023 Digital Access Answer Date Recorded No 03/20/2023 No 03/20/2023 No 03/20/2023 Reliable internet access at home? Not on file 03/20/2023 Device with a working camera? Not on file Sex and Gender Information Value Date Recorded Sex Assigned at Not on file Legal Sex Male 10:53 AM EDT Gender Identity Not on file Sexual Orientation Not on file Plan of Treatment Health Maintenance Due Date Last Done Comments Adult Td,Tdap Booster 1963 LIPID PANEL 1963 TSH LEVEL 1963 DEPRESSION SCREENING 1975 SMOKING Hx and SMOKELESS TOBACCO SCREENING 1976 HEPATITIS C SCREENING 1981 HIV ONE-TIME SCREENING (18-6 5 YEARS) 1981 COLOGUARD 2008 COLONOSCOPY 2008 COLORECTAL CANCER SCREENING 2008 FIT TEST 2008 FOBT 2008 SIGMOIDOSCOPY 2008 VIRTUAL COLONOSCOPY 2008 PNEUMOCOCCAL VACCINES (50+ years) (1 of 1 - PCV) 2013 ZOSTER VACCINES (1 of 2) 2013 COVID-19 VACCINE (3 - 2023-2 5 season) 2024 03/27/2021, 02/26/2021 RSV VACCINE (1 - 1-dose 75+ series) 2038 HEPATITIS A VACCINES Aged Out No long er eligible based on patient's age to complete this topic HIB VACCINES Aged Out No longer eligi ble based on patient's age to complete this topic MENINGOCOCCAL VACCINES (ACWY) Aged Out No longer eligible based on patient's age to complete this topic MENINGOCOCCAL VACCINES (B) Aged Out N o longer eligible based on patient's age to complete this topic Medical Devices Not on file Insurance O POS O POS HMO POS HMO POS HMO POS [facility] [place] [address] [place] [address] HMO POS [place] [facility] Care Teams Cisco Unified Communications Engineer Relationship Specialty Start Date End Date Ruslan Clayton MD [address] [place] [address] [place] [address] PCP - General Internal Medicine 01/12/19 Additional Source Comments The information contained in this document represents components of the legal health record. It is not the complete legal health record.[facility]
--- OUTSIDE RECORDS SUMMARY | 2025-06-21 16:18 | XMS_ITS | Encounter Summary ---
Author Organization [facility] Address [address] [place] [address] [place] [phone] Phone Care Team Providers Care Handkerchief Cutter Name Role Phone Ruslan Clayton MD Primary Care Provider Reason for Referral * Consultation (Elective) - Closed Specialty Diagnoses / Procedures Referred By Contac t Referred To Contact Neurology Diagnoses Myelopathy System, Provider Not In, [facility] [address] [address] Helena Berg MD Phone: tel: fax: [email or web address] Referral ID Status Reason Start Date Expiration Date Visits Re quested Visits Authorized [id number] Closed 05/29/2019 05/28/2020 6 6 Encounter Details Date Type Department Care Team (Late st Contact Info) Description 03/06/2019 Transcribe Orders [facility] Department of Neurology [address] [place] [address], [address] Floor, [address] [place] [address] Ruslan Clayton MD [address] [place] [address] [place] [address] Myelopathy (Primary Dx) Social History Tobacco Use Types Packs/Day Years Used Date Smoking Tobacco: Never Assessed Sex and Gender Information Value Date Recorded Sex Assigned at Not on file Legal Sex Male 10:53 AM EDT Gender Identity Not on file Sexual Orientation Not on file documented as of this encounter Plan of Treatment Scheduled Referrals Name Type Priority Associated Diagnoses Order Schedule Ambulatory referral to [facility] Neurology Outpatient Referral Routine Myelopathy Ordered: 03/06/2019 documented as of this encounter Visit Diagnoses Diagnosis Myelopathy- Primary Unspecified disease of spinal cord documented in this encounter Care Teams Handkerchief Cutter Relationship Specialty Start Date End Date Ruslan Clayton MD [address] [place] [address] [place] [address] PCP - General Internal Medicine 01/12/19 documented as of this encounter Additional Source Comments The information contained in this document represents components of the legal health record. It is not the complete legal health record.[facility]
--- OUTSIDE RECORDS SUMMARY | 2025-06-21 16:18 | XMS_ITS | Clinical Summary ---
Author Organization [address] [place] [address] [place] [phone] Phone Care Team Providers Care Program Proposals Coordinator Name Role Phone Ruslan Clayton MD Primary Care Provider Allergies No known active allergies Medications sertraline [...] to complete this topic Insurance Care Teams Program Proposals Coordinator Relationship Specialty Start Date End Date Ruslan Clayton MD [address] [place] [address] Dr Dior [place] PCP - General Top Lift Cutter 11/22/18
--- OUTSIDE RECORDS SUMMARY | 2025-06-21 16:18 | XMS_ITS | Encounter Summary ---
Author Organization [facility] Address [address] [facility] [address] [place] [address] Phone Care Team Providers Care Loss Control Consultant Name Role Phone Ruslan Clayton MD Primary Care Provider Encounter Details Date Type Department Care Team (Late st Contact Info) Description 06/14/2019 Procedure Pass [facility] [address] [place] [address] Social History Tobacco Use Types Packs/Day Years [...] on filedocumented in this encounter Care Teams Loss Control Consultant Relationship Specialty Start Date End Date Ruslan Clayton MD [address] [place] [address] [place] [address] PCP - General Internal Medicine 01/12/19 documented as of this encounter Additional Source Comments The information contained in this document represents components of the legal health record. It is not the complete legal health record.[facility]
--- OUTSIDE RECORDS SUMMARY | 2025-06-21 16:19 | XMS_ITS | Patient Health Record ---
Author Organization [facility] Address [address] [place] [address] Care Team Providers Care Bit Grinder Name Role Phone Forrest (RETIRED) Ruslan ESCALONA Primary Care Provide r Unavailable Bret Correa Unavailable [phone] Reason For Referral No Information Medications Medication [...] Status Risk Notes Problem Colon cancer screening (911030876) Colon cancer screening (V76.51) Active confirmed Problem retirement current use of non-steroidal anti-inflammat ories (NSAID) (V58.64) Active confirmed Plan Of Treatment Future Test Test Name Order Date COLONOSCOPY 01/25/2015 Insurance Providers Payer Name Payer Address Payer Phone Subscriber Number Group Number Insured Name Patient Relationship to Insured Coverage Start Date Coverage End Date O BLUE [employer] PROF[employer]AL CLAIMS [address] [place] [address] [phone] [id number] GAEL CARY Self - patient is the insured Medical (General) History Medical History History ICD Code Denies [place],DM,CVA,Lung disease,renal dise ase Hypothyroidism Depression Arthritis in hands Surgical History Surgery Date(Month/Year) Broken femurs-- surgery Pilonidal cyst
== END 2025-06-21 16:29 | disposition home or self-care (01) ==
LOC: HO.HMCHD 16:01
PROVIDERS: PCP Internal Medicine; Visit Provider Internal Medicine
DX: I70.0 Atherosclerosis of aorta (principal); L40.50 Arthropathic psoriasis, unspecified; F33.41 Major depressive disorder, recurrent, in partial remission

== ENCOUNTER → 2025-06-21 16:00 | Outpatient (BNVA) | payer BC, SELFPAY | PROVIDERS: PCP Internal Medicine; Visit Provider Internal Medicine | DX: I70.0 Atherosclerosis of aorta (principal); L40.50 Arthropathic psoriasis, unspecified; F33.41 Major depressive disorder, recurrent, in partial remission; Z79.899 Other long term (current) drug therapy; Z13.31 Encounter for screening for depression; Z13.39 Encounter for screening examination for other mental health and behavioral disorders | CPT/HCPCS: 96127 ==

== ENCOUNTER 2025-07-05 09:03 | Outpatient (AMB) | payer BC, SELFPAY ==
--- NOTE | 2025-07-05 09:07 | A.OFFVIS_ITS ---
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 Patient c/o of bilateral shoulder pain, bilateral hand pain, bilateral hip pain and lower back pain. Patient has been feeling pain for five years. Patient stated he takes Tylenol and it helps. Allergies No Known Allergies Allergy (Verified 07/05/25 09:15) Medication List - Last Reconciled 07/05/25 by Radha Marcos MD levothyroxine 25 mcg PO DAILY sertraline 50 mg PO DAILY HPI Comments Details: Patient is a 59 y.o. male with hypothyroidism 2/2 autoimmune thyroid disease, depression/anxiety here today for evaluation of joint pain Has hand pain for the past 5 years. Pain is mainly at night. Followed up with his primary and had XRs done which was concerning for PsA and so presented for further evaluation Has had trigger finger release and carpal tunnel release surgery in both wrists AM stiffness that last about 30 mins Has not noticed swelling but they feel swollen No history of PsO or any rashes No family history of autoimmune disease [facility] Medical History (Updated 07/05/25 @ 10:00 by Radha Marcos MD) Erosive osteoarthritis Hx of fracture of femur Broken leg History of hypothyroidism History of anxiety History of depression Surgical History History of carpal tunnel surgery of right wrist Hx of colonoscopy (~04/12/15) Hx of surgical biopsy Family History Father No problems noted. Mother No problems noted. Social History Housing: House Alcohol intake: never Patient Tobacco Use Status: Former Tobacco user e-Cigarette/Vaping Use: Former Use Substance Use Type: Marijuana service: No Current occupational status: retired and disabled Current occupation: left hand Cognitive needs: No Hearing needs: No Vision needs: Yes (rx glasses) Review of Systems Const Details: Review of Systems Constitutional: Denies fever, chills, weight loss ENT: Denies vision changes, eye pain or eye redness, dental caries, dry mouth GI: Denies nausea, vomiting, diarrhea, abdominal pain, change in BM Pulm: Denies SOB, [place], hemoptysis, wheezing Cards: Denies chest pain, palpitations Skin: Denies Raynaud's, photosensitivity AEROLOGIST: Denies headaches, weakness, paresthesias, recurrent falls MSK: as per HPI All other systems reviewed and are unremarkable except noted above Physical Exam Exam Exam: Vital signs reviewed Physical Examination CONSTITUITIONAL Patient alert and cooperative. Well appearing and in no apparent painful distress MSK Hands * Right Hand: Able to make a fist. No swelling or tenderness to palpation of the MCPs, PIPs or DIPs. * Left Hand: Able to make a fist. No swelling or tenderness to palpation of the MCPs, PIPs or DIPs. * Herbedens nodes noted bilaterally Wrists * Right Wrist: Full ROM to flexion and extension. No swelling or TTP * Left Wrist: Full ROM to flexion and extension. No swelling or TTP Elbows * Right Elbow: Full ROM. No swelling or TTP. No TTP of the medial epicondyle. No TTP of the lateral epicondyle * Left Elbow: Full ROM. No swelling or TTP. No TTP of the medial epicondyle. No TTP of the lateral epicondyle Shoulders * Right shoulder: Full ROM. No swelling noted. No TTP of the AC joint. No TTP of the subacromial bursa. No TTP of the posterior shoulder * Left shoulder: Full ROM. No swelling noted. No TTP of the AC joint. No TTP of the subacromial bursa. No TTP of the posterior shoulder Knees * Right knee: Full ROM. No swelling noted. No TTP of the knee joint line. No TTP of pes anserine bursa * Left knee: Full ROM. No swelling noted. No TTP of the knee joint line. No TTP of pes anserine bursa. * Crepitations felt bilaterally Ankles * Right ankle: Good ankle dorsiflexion and plantar flexion. No swelling. No TTP of the ankle joint * Left ankle: Good ankle dorsiflexion and plantar flexion. No swelling. No TTP of the ankle joint Feet * Right foot: Negative squeeze test * Left foot: Negative squeeze test Tender points? * No tenderness to palpation of the bilateral trapezius, supraspinatus, anterior costochondral junctions, bilateral suboccipital muscle insertions SKIN Some scaling over the over the right knee, and bilateral elbows Onycholysis involving the bilateral great toes No nail pitting Vital Signs: Last Vital Signs Pulse 68 07/05/25 09:17 BP 140/100 H 07/05/25 09:17 Pulse Ox 97 07/05/25 09:17 Oxygen Delivery Method Room Air 07/05/25 09:17 BMI result Body Mass Index 31.9 Results Reviewed Results Reviewed: Laboratory Tests 02/17/25 09:42 WBC 8.8 RBC 5.09 Hgb 14.3 Hct 41.9 L Plt Count 291 ESR 62 H Sodium 138 Potassium 4.3 Chloride 106 Carbon Dioxide 25 BUN 23 H Creatinine 0.89 AST 21 ALT 18 XR Bilateral Hands 02/2025 FINDINGS: LEFT HAND/WRIST: There is normal bone mineralization. No periarticular osteopenia identified. No fracture, dislocation, or suspicious bone lesion. There are or arthritic changes of the DIP joints of the digits, most notable in the second and third digits. There are mild findings in the interphalangeal joint of the thumb. There is a suggestion of lateral periarticular erosions in the DIP joints. Mild arthritis in the first through third MCP joints, with mild osteophytic spurs of the second and third metatarsal heads. The bony carpus is normally aligned without definite erosions or arthritic findings. There is negative ulnar variance. No erosion of the ulnar styloid. Soft tissues demonstrate vascular calcifications but are otherwise normal. RIGHT HAND/WRIST: There is normal bone mineralization. No periarticular osteopenia identified. No fracture, dislocation, or suspicious bone lesion. There are or arthritic changes of the DIP joints of the digits, most notable in the second and third digits. There are mild findings in the interphalangeal joint of the thumb. There is a suggestion of lateral periarticular erosions in the DIP joints. Mild arthritis in the first through third MCP joints, with mild osteophytic spurs of the second and third metatarsal heads. There is an erosion laterally in the third metatarsal head. The bony carpus is normally aligned without definite erosions or arthritic findings. There is negative ulnar variance. No erosion of the ulnar styloid. Soft tissues demonstrate vascular calcifications but are otherwise normal. IMPRESSION: Findings of early erosive arthropathy in both hands, predominantly affecting the DIP joints of the digits, and lesser involvement of the MCP joints. These arthritic changes consistent with predominantly productive bony changes with marginal erosions highly suggestive of psoriatic arthropathy. Differential would include early primary erosive osteoarthritis. Assessment & Plan Assessment & Plan (1) Erosive osteoarthritis: Code(s): M15.4 - Erosive (osteo)arthritis Category: Medical Plan: #Erosive OA vs PsA Patient is a 59 y.o male with hand pain here today for evalu osteoarthritis ation. I have reviewed the x-rays myself and I more see a gull wing pattern consistent with erosive osteoarthritis rather than psoriatic arthritis. Attempted to reach out to radiology but the radiologist is currently out of office. Will trial methotrexate and re evaluate Plan - Methotrexate 15mg weekly - Folic acid 1mg daily - Consider MRI bilateral hands - RTC 4 months - Labs before visit: CBC, CMP, ESR, CRP, Hepatitis panel and T spot (2) Encounter for methotrexate monitoring: Code(s): Z51.81 - Encounter for therapeutic drug level monitoring; Z79.631 - intermediate card tender (current) use of antimetabolite agent Plan: #Long-term Current Use of Methotrexate Discussed with patient the benefits and risks of methotrexate for managing their rheumatic condition Benefits include reduced pain, reduced mortality, maintenance of remission and reduction of flares Risks include oral ulcers, photosensitivity, hepatotoxicity, hematologic toxicity, pneumonitis, flu-like symptoms (especially day after administration), nodulosis, lymphomas ? Limit alcohol and avoid Bactrim ? Monitoring: CBC, BMP, LFTs every 3-4 months and hepatitis serologies as needed Plan I spent 60 minutes reviewing the record and labs, taking a history, examining the patient, discussing the treatment plan, attempting to reach out to radiology, ordering diagnostic work up and documenting in the medical record Orders: Orders C Reactive Protein 4 Months Z79.899 - Other long term care phlebotomist (current) drug therapy Erythrocyte Sedimentation Rate 4 Months Z79.899 - Other long term care phlebotomist (current) drug therapy Hepatitis B,C Profile 4 Months Z79.899 - Other halfway (current) drug therapy Complete Blood Count Auto Diff 4 Months Z79.899 - Other long term care phlebotomist (current) drug therapy Comprehensive Met. Panel 4 Months Z79.899 - Other long term care phlebotomist (current) drug therapy T Spot TB 4 Months Z79.899 - Other halfway (current) drug therapy Medications: New methotrexate sodium 15 mg (6 x 2.5 mg) PO QWEEK 78 tabs 1RF 90 days M15.4 - Erosive (osteo)arthritis folic acid 1 mg PO DAILY 90 tabs 1RF M15.4 - Erosive (osteo)arthritis Coding Level of Care Code New Pt Level 5 (97693) Complex EM visit Add On G2211 Diagnoses Erosive osteoarthritis M15.4 Encounter for methotrexate monitoring Z51.81; Z79.631
[2025-07-05 09:17] VITALS: BP 140/100; PULSE 68; O2SAT 97; BMI 31.9
--- OUTSIDE RECORDS SUMMARY | 2025-07-05 10:20 | XMS_ITS | Encounter Summary ---
Author Organization [facility] Address [address] [facility] [address] [place] [address] Phone Care Team Providers Care Hand Tube Winder Name Role Phone Ruslan Clayton MD Primary Care Provider Encounter Details Date Type Department Care Team (Late st Contact Info) Description 06/14/2019 Procedure Pass [facility] [address] [place] [address] Social History Tobacco Use Types Packs/Day Years [...] on filedocumented in this encounter Care Teams Hand Tube Winder Relationship Specialty Start Date End Date Ruslan Clayton MD [address] [place] [address] [place] [address] PCP - General Internal Medicine 01/12/19 documented as of this encounter Additional Source Comments The information contained in this document represents components of the legal health record. It is not the complete legal health record.[facility]
--- OUTSIDE RECORDS SUMMARY | 2025-07-05 10:20 | XMS_ITS | Encounter Summary ---
Author Organization [facility] Address [address] [facility] [address] [place] [address] Phone Care Team Providers Care Manager Commercial Real Estate Name Role Phone Ruslan Clayton MD Primary Care Provider Encounter Details Date Type Department Care Team (Late st Contact Info) Description 06/14/2019 Procedure Pass [facility] Imaging [address] [place] [address] Social History Tobacco Use Types Packs/Day Years [...] on filedocumented in this encounter Care Teams Manager Commercial Real Estate Relationship Specialty Start Date End Date Ruslan Clayton MD [address] [place] [address] [place] [address] PCP - General Internal Medicine 01/12/19 documented as of this encounter Additional Source Comments The information contained in this document represents components of the legal health record. It is not the complete legal health record.[facility]
--- OUTSIDE RECORDS SUMMARY | 2025-07-05 10:20 | XMS_ITS | Encounter Summary ---
Author Organization [facility] Address [address] [place] [address] [place] [address] Phone Care Team Providers Care Flight Readiness Technician Name Role Phone Ruslan Clayton MD Primary Care Provider Reason for Referral * Consultation (Elective) - Closed Specialty Diagnoses / Procedures Referred By Contac t Referred To Contact Neurology Diagnoses Myelopathy System, Provider Not In, [facility] [address] [address] Helena Berg MD Phone: tel: fax: [email or web address] Referral ID Status Reason Start Date Expiration Date Visits Re quested Visits Authorized [id number] Closed 05/29/2019 05/28/2020 6 6 Encounter Details Date Type Department Care Team (Late st Contact Info) Description 03/06/2019 Transcribe Orders [facility] [place] [address] [place] [address], [address] Floor, [address] [place] [address] Ruslan Clayton MD [address] [place] [address] [place] [address] Myelopathy (Primary Dx) Social History Tobacco Use [...] Associated Diagnoses Order Schedule Ambulatory referral to [facility] [place] Outpatient Referral Routine Myelopathy Ordered: 03/06/2019 documented as of this encounter Visit Diagnoses Diagnosis Myelopathy- Primary Unspecified disease of spinal cord documented in this encounter Care Teams Flight Readiness Technician Relationship Specialty Start Date End Date Ruslan Clayton MD [address] [place] [address] [place] [address] PCP - General Internal Medicine 01/12/19 documented as of this encounter Additional Source Comments The information contained in this document represents components of the legal health record. It is not the complete legal health record.[facility]
--- OUTSIDE RECORDS SUMMARY | 2025-07-05 10:20 | XMS_ITS | Patient Health Record ---
Author Organization [facility] Address [address] [place] [address] Care Team Providers Care Machine Stitcher Name Role Phone Forrest (RETIRED) Ruslan ESCALONA Primary Care Provide r Unavailable Bret Correa Unavailable [phone] Reason For Referral No Information Medications Medication [...] Status Risk Notes Problem Colon cancer screening (431548471) Colon cancer screening (V76.51) Active confirmed Problem rn long term care current use of non-steroidal anti-inflammat ories (NSAID) (V58.64) Active confirmed Plan Of Treatment Future Test Test Name Order Date COLONOSCOPY 01/25/2015 Insurance Providers Payer Name Payer Address Payer Phone Subscriber Number Group Number Insured Name Patient Relationship to Insured Coverage Start Date Coverage End Date O BLUE [employer] PROFESSIONAL CLAIMS [address] [place] [address] [phone] [id number] 300 GAEL CARY Self - patient is the insured Medical (General) History Medical History History ICD Code Denies [place],DM,CVA,Lung disease,renal dise ase Hypothyroidism Depression Arthritis in hands Surgical History Surgery Date(Month/Year) Broken femurs-- surgery Pilonidal cyst
--- OUTSIDE RECORDS SUMMARY | 2025-07-05 10:20 | XMS_ITS | Encounter Summary ---
Author Organization [facility] Address [address] [facility] [address] [place] [address] Phone Care Team Providers Care Special Officer Automat Name Role Phone Ruslan Clayton MD Primary Care Provider Encounter Details Date Type Department Care Team (Late st Contact Info) Description 06/14/2019 Procedure Pass [facility] [address] [place] [address] Social History Tobacco Use Types Packs/Day Years [...] on filedocumented in this encounter Care Teams Special Officer Automat Relationship Specialty Start Date End Date Ruslan Clayton MD [address] [place] [address] [place] [address] PCP - General Internal Medicine 01/12/19 documented as of this encounter Additional Source Comments The information contained in this document represents components of the legal health record. It is not the complete legal health record.[facility]
--- OUTSIDE RECORDS SUMMARY | 2025-07-05 10:20 | XMS_ITS | Continuity of Care Document ---
Author Organization [facility] [address] [facility] [address] [place] [address] Phone [phone] Care Team Providers Care Principal Consultant Name Role Phone Ruslan Clayton M.D. Care Team Information Receiv er [phone] Problems Active Problems Provider Date Osteoarthritis Neymar [...] SIG Qnty Indications Ordering Provider Date Levothyroxine Xienvb23mps Tablets Take 1 Tablet By Mouth Every Day 90taseth Austin M.D. 06/17/2022 Sertraline EON85rd Tablets Take 1 Tablet By Mouth Every Day 90tabs Neymar Austin M.D. 06/10/2022 Vital Signs Date Vital Result Comment 06/17/2022 8:59am BP Systolic 142 mmHg BP Diastolic 80 mmHg Heart Rate 63 /min Height 69 inches 5'9 Weight 226.50 lb BMI (Body Mass Index) 33.4 kg/m2 Results Test Acquired Date Facility Test Result H/L Range N ote TSH With Reflex To FT4 06/17/2022 [facility] TSH With Reflex To [...]
--- OUTSIDE RECORDS SUMMARY | 2025-07-05 10:20 | XMS_ITS | Clinical Summary ---
Author Organization [facility] Address [address] [place] [address] Phone Care Team Providers Care Production Control Expert Name Role Phone Ruslan Clayton MD Primary [...] 2013 ZOSTER VACCINES (1 of 2) 2013 INFLUENZA VACCINE (#1) 2025 COVID-19 VACCINE (3 - 2024-2 6 season) 2025 03/27/2021, 02/26/2021 RSV VACCINE (1 - 1-dose [...] POS O POS HMO POS [place] [address] [place] [address] [place] [address] [place] [address] [place] [address] [place] [address] [place] [address] [place] [address] HMO POS [facility] HMO POS Care Teams Production Control Expert Relationship Specialty Start Date End Date Ruslan Clayton MD [address] [place] [address] [place] [address] PCP - General Internal Medicine 01/12/19 Additional Source Comments The information contained in this document represents components of the legal health record. It is not the complete legal health record.[facility]
--- OUTSIDE RECORDS SUMMARY | 2025-07-05 10:20 | XMS_ITS | Clinical Summary ---
Author Organization [address] [place] [address] [place] [phone] Phone Care Team Providers Care Railway Yard Assistant Name Role Phone Ruslan Clayton MD Primary Care Provider [phone] Allergies No known active allergies Medications sertraline [...] 2013 Zoster Vaccines (1 of 2) 2013 Depression Screening 10/25/2024 Cholesterol Screening (Lipid Panel) 01/13/2025 Colorectal Cancer Screening: Colonoscopy 01/13/2025 HIV Screening 01/13/2025 Hepatitis C Screening 01/13/2025 Social Influencers of Health Screening 01/13/2025 Hypertension/CHF/CAD Annual BMP Blood Test 01/25/2025 COVID-19 Vaccine (3 - 2024-2 6 season) 2025 03/27/2021, 02/26/2021 Influenza Vaccine (#1) 2025 RSV Immunization Adult [...] to complete this topic Insurance Care Teams Railway Yard Assistant Relationship Specialty Start Date End Date Ruslan Clayton MD [address] [place] [address] Dr Dior [place] PCP - General Member Of The Legislative [employer] 11/22/18
== END 2025-07-05 10:03 | disposition home or self-care (01) ==
LOC: HO.RHES 09:04
PROVIDERS: PCP Internal Medicine; Visit Provider Student in an Organized Health Care Education/Training Program
DX: M15.4 Erosive (osteo)arthritis (principal); Z51.81 Encounter for therapeutic drug level monitoring; Z79.631 Long term (current) use of antimetabolite agent
CPT/HCPCS: 99205